=== PATIENT | male | born 2000 | race Caucasian/White ===

== ENCOUNTER 2024-05-03 03:19 | Emergency (ER) | payer SELFPAY ==
[2024-05-03 03:33] VITALS: BP 160/103
[2024-05-03 03:57] VITALS: BMI 40.0
[2024-05-03 04:00] VITALS: BP 141/84
[2024-05-03] MEDS: TORADOL 15 MG IV (04:46)
--- NOTE | 2024-05-03 04:51 | ED.GENMED ---
History of Present Illness
General
Chief Complaint: Extremity Pain (non-traumatic)
Source: patient
Time Seen by Provider: 05/03/24 04:35
History of Present Illness
History of Present Illness:
24-year-old male presents to the emergency room complaining of a sickle cell crisis. Patient has an extensive history of sickle cell disease with complications. He has had a right hip replacement, cholecystectomy, autosplenectomy. Mom states that
when he was younger he was at [facility] quite frequently. As he is gotten older is crises have become less frequent. Typically he has 1-2 crises a year and he usually is able to control pain with a heating pad and Motrin.
However he has pain in his right heel today which is a new place for him to have pain. He is having difficulty walking because of the pain. He has not had a fever. He has no chest pain or shortness of breath. No nausea or vomiting.
Past History
Past History
ED Past Medical History: Other (Sickle cell disease)
ED Past Surgical History: Cholecystectomy, Tonsilectomy and Other (Splenectomy)
Social History
Tobacco: Non-smoker
Alcohol: None
Drug: None
Living: with family
Phy Exam
Physical Exam
Physical Exam:
General: Awake, Alert, Oriented X3. Appears uncomfortable but in no acute distress
Vitals: unremarkable
Head: Atraumatic
Eyes: Pupils equal, EOMI
Throat: Airway intact, no exudates
Neck: Trachea midline
Lungs: Clear and equal b/l
Heart: Regular rate, no murmurs
Abd: Soft, Nontender, No pulsatile mass
Neuro: Nonfocal
Skin: Warm, dry, no rash
Extremities: pulses equal b/l, no edema. Pain to palpation over the right heel. Some pain over the left knee.
Course
Orders/Labs/Results
Orders:
Orders
05/03/24 04:39
Ketorolac [Toradol] 15 mg .ROUTE .STK-MED ONE
05/03/24 04:45
Complete Blood Count/With Diff Urgent
Comprehensive Metabolic Panel Urgent
Manual Differential Urgent
Reticulocyte Count Urgent
Ketorolac [Toradol] 15 mg IM NOW STA
05/03/24 04:46
Ketorolac [Toradol] 15 mg IV NOW STA
05/03/24 04:51
0.9% Sodium Chloride 1000 ml [Nss] 1,000 ml IV BOLUS
Lactated Ringers [Lr] 1,000 ml IV BOLUS
05/03/24 04:52
Heel, Right 2 View [CR Heel/os Calcis - Right 2 Vw] Urgent
Comment:
Reason For Exam: Heel pain
05/03/24 06:51
HYDROmorphone [Dilaudid] 1 mg IV NOW STA
Abnormal Lab Results
05/03/24
04:45
WBC 17.3 H 10^3/uL
(4.8-10.8)
RBC 4.42 L 10^6/uL
(4.70-6.10)
Hgb 9.7 L g/dL
(13.0-18.0)
Hct 31.0 L %
(39.0-52.0)
MCV 70.1 L fL
(80.0-94.0)
MCH 21.9 L pg
(27.0-31.0)
MCHC 31.3 L g/dL
(33.0-37.0)
RDW 23.9 H %
(11.5-14.5)
Plt Count 650 H 10^3/uL
(130-400)
Abs Neuts (Manual) 11.9 H 10^3/uL
(1.4-6.5)
Lymphocytes (Manual) 17 L %
(20-51)
Retic Count 15.8 H %
(0.4-2.8)
Glucose 106 H mg/dl
(70-99)
Total Bilirubin 3.3 H mg/dl
(0.2-1.3)
Total Protein 8.6 H g/dl
(6.3-8.2)
05/03/24 04:45
05/03/24 04:45
Vital Signs
Initial and Last Documented VS:
Initial Vital Signs
Temp Pulse Resp BP Pulse Ox
98.4 F 96 18 160/103 94
05/03/24 03:33 05/03/24 03:33 05/03/24 03:33 05/03/24 03:33 05/03/24 03:33
Last Documented Vital Signs
Temp Pulse Resp BP Pulse Ox
98.2 F 93 20 149/90 92
05/03/24 04:23 05/03/24 06:15 05/03/24 06:15 05/03/24 06:00 05/03/24 06:15
MDM/Problems Addressed
Differential Diagnosis Includes:
Vaso-occlusive crisis, aplastic crisis, fracture
MDM/Problems Addressed:
Patient presents with pain in his left knee and right heel. Right heel is a new place for him to have pain. Labs show that he is making a adequate amount of reticulocytes. He is not hypoxic. His hemoglobin is up approximately at his baseline.
Patient feeling better after analgesia here. He seems stable for discharge but I have explained that he should return if his pain is not well-controlled or he develops a fever.
*Radiology
Radiology exam reviewed: preliminary read by ED provider (No fracture or acute process is noted)
*Pulse Oximetry
Patient hypoxic: no
*Critical Care Note
Total Time (30-74mins, 75-104mins- exclusive of procedures): Not Applicable
Patient Management
Social determinants of health affecting care: Poor outpatient follow-up and Strong social support
ED Attending Note
-
Portions of this chart may have been created with voice recognition software.� Occasional wrong word or��sound alike� substitutions may have occurred due to the inherent limitations of voice recognition software.
Discharge Plan
Departure
Patient Disposition: Home (Routine Discharge)
Date of Disposition: 05/03/24
Time of Disposition: 08:14
Patient with high blood pressure during this ER visit?: No
Discharge Problem:
Sickle cell crisis
Instructions: Sickle Cell Disease Pain ED, BLOOD PRESSURE
Prescriptions:
New
oxycodone 5 mg tablet
5 mg PO Q6H PRN (Reason: Pain) Qty: 12 0RF
No Action
folic acid 1 MG tablet
1 mg PO DAILY
ibuprofen 400 MG tablet
600 mg PO Q6HPRN PRN (Reason: pain)
cholecalciferol (vitamin D3) 2,000 UNIT tablet
1,000 unit PO DAILY
hydroxyurea 500 MG capsule
1,500 mg PO DAILY
Droxia 200 MG capsule
200 mg PO DAILY
Penicillin V Potassium
250 mg PO BID
Referrals:
Ilia Godinez MD [Family Provider] -
Gil Vazquez MD [Active] -
Activity Restrictions/Additional Instructions:
Return to the emergency room should you develop a fever or if the pain is not controlled. I have provided you the contact information for the data abstractor here at [facility]. You should call to make an appointment so you have appropriate
follow-up for your disease.
Interventions
Interventions:
*Risk Screen - Suicide Last Done: 05/03/24 04:26
*General Assessment Last Done: 05/03/24 03:33
*Neglect/Abuse Screening Last Done: 05/03/24 03:33
ED- Fall Risk Assessment Last Done: 05/03/24 03:57
*ED COVID-19 Vaccine History Last Done: 05/03/24 03:57
ED-Skin Assessment Last Done: 05/03/24 03:57
ED-Peripheral Vascular Assessment Last Done: 05/03/24 03:57
ED-Musculoskeletal Assessment Last Done: 05/03/24 03:57
Discharge Date and Time
Print Language: KUWAITI
[2024-05-03] MEDS: LR 1000 IV (04:54)
[2024-05-03 05:29] LABS: Hemoglobin 9.7 g/dL (13.0-18.0); Mean Corp Hgb Conc. 31.3 g/dL (33.0-37.0); Mean Corpuscular Hgb 21.9 pg (27.0-31.0); Mean Corpuscular Volume 70.1 fL (80.0-94.0); Mean Platelet Volume 8.6 fL (7.4-10.4); Platelet Count 650 10^3/uL (130-400); Red Blood Cell Count 4.42 10^6/uL (4.70-6.10); Red Cell Dist. Width 23.9 % (11.5-14.5); White Blood Cell Count 17.3 10^3/uL (4.8-10.8)
[2024-05-03 05:30] LABS: ALT (SGPT) 22 U/L (0-50); AST (SGOT) 38 U/L (17-59); Albumin 4.8 g/dl (3.5-5.0); Alkaline Phosphatase 83 U/L (38-126); Blood Urea Nitrogen 10 mg/dl (9-20); Carbon Dioxide 22 mmol/L (22-30); Chloride 103 mmol/L (98-107); Estimated Creatinine Clearance > 125 ml/min; Glucose 106 mg/dl (70-99); Potassium 4.6 mmol/L (3.5-5.1); Sodium 138 mmol/L (135-145); Total Bilirubin 3.3 mg/dl (0.2-1.3); Total Protein 8.6 g/dl (6.3-8.2); eGFR > 60.00
[2024-05-03 05:37] VITALS: BP 147/82
[2024-05-03 06:00] VITALS: BP 149/90
[2024-05-03 06:00] LABS: Absolute Neutrophils -Man Diff 11.9 10^3/uL (1.4-6.5); Anisocytosis 2+; Atypical Lymphocytes 3 %; Band Neutrophils 1 % (0-3); Eosinophils 2 % (0-6); Lymphocytes 17 % (20-51); Metamyelocytes 1 % (-); Monocytes 7 % (2-9); Myelocytes 1 % (-); Normal RBC Morphology No; Nucleated Red Blood Cells 113 (-); Platelets Checked Yes; Segmented Neutrophils 68 % (42-75)
[2024-05-03 06:34] LABS: Hypochromasia 2+; Microcytosis 2+; Poikilocytosis 2+; Polychromasia 1+
[2024-05-03 06:35] LABS: Basophilic Stippling Occasional; Ovalocytes 1+; Schistocytes Occasional
[2024-05-03 06:36] LABS: Howell Jolly Bodies 1+; Tear Drop Red Blood Cells Occasional
[2024-05-03 06:37] LABS: Target Cells 3+; Total Cells Counted 100
[2024-05-03 06:38] LABS: Reticulocyte Count 15.8 % (0.4-2.8)
[2024-05-03 06:41] LABS: Sickled Red Blood Cells 1+
[2024-05-03] MEDS: DILAUDID 1 MG IV (06:54)
[2024-05-03 07:00] VITALS: BP 151/86
--- NOTE | 2024-05-03 07:00 | PTCARENOTE ---
Late Entry: Ordered LR completed infusing at 0700 05/03/2024.
[2024-05-03 08:00] VITALS: BP 144/87
== END 2024-05-03 08:30 | disposition home or self-care (01) ==
LOC: EMR 03:19
PROVIDERS: EMERGENCY PHYSICIAN Emergency Medicine
DX: D57.00 Hb-SS disease with crisis, unspecified (principal); M25.562 Pain in left knee; M79.671 Pain in right foot; R26.2 Difficulty in walking, not elsewhere classified; Z96.641 Presence of right artificial hip joint; Z90.49 Acquired absence of other specified parts of digestive tract; Z90.81 Acquired absence of spleen
CPT/HCPCS: 99284; 96374; 96375; 96361 ×2; 73650; 80053; 85025; 85045

== ENCOUNTER 2024-08-06 05:11 | Emergency (ER) | payer SELFPAY ==
[2024-08-06 05:15] VITALS: BP 190/80
--- NOTE | 2024-08-06 05:31 | ED.GENMED ---
History of Present Illness
<Carole Jordan DO - Last Filed: 08/06/24 07:09>
General
Chief Complaint: Generalized Pain
Source: patient, family (Mother at bedside) and previous hospital records (Previous ED visit for similar complaints most recently April of this year. Most recent hospitalization March 2018, required transfer to [facility] due
to ongoing pain)
Exam Limitations: none
Time Seen by Provider: 08/06/24 05:30
Nursing documentation reviewed up to this point in time: agreed with
History of Present Illness
History of Present Illness:
This is a 24-year-old male who presents to the ED with complaints of generalized pain related to sickle cell crisis. He has extensive history of sickle cell disease with complications. History of right hip replacement, cholecystectomy,
splenectomy. Multiple hospitalizations when he was younger at [facility] due to recurrent vaso-occlusive crisis but more recently as he has gotten older, crisis episodes have become less frequent. He is usually able to control
the pain with a heating pad and Motrin. He was prescribed a few tramadol last month and took a dose of tramadol tonight without relief.
He complains of 2-day history of primarily left shoulder, left hip, right knee pain. He has not had a fever nor chills. He denies cough nor fever nor shortness of breath, denies chest pain.
He denies nausea nor vomiting, no diarrhea nor constipation, appetite has been good.
Most recent ED visit here for similar complaint April 2024.
Past History
<Carole Jordan DO - Last Filed: 08/06/24 07:09>
Past History
ED Past Medical History: Other (Sickle cell disease)
ED Past Surgical History: Cholecystectomy, Tonsilectomy and Other (Splenectomy)
Social History
Tobacco: Non-smoker
Alcohol: None
Drug: None
Personal: Single
Living: with family
Employment: Employed
Family History
Family History: Other (Noncontributory)
Phy Exam
<Carole Jordan DO - Last Filed: 08/06/24 07:09>
Physical Exam
Physical Exam:
GENERAL: 24-year-old overweight male appears his stated age, awake and alert, oriented x 3. Appears uncomfortable related to pain. Afebrile, hypertensive, tachycardic.
EYE: anicteric
NECK: Supple, nontender, no meningismus, no significant adenopathy.
ENT: oral mucosa is moist. No rhinorrhea.
CARDIAC: Regular rhythm, mildly tachycardic. no murmur.
LUNGS: Clear breath sounds bilaterally, no acute respiratory distress, no wheezes/rales/rhonchi
ABDOMEN: Soft, nondistended, without focal tenderness, no r/g, no cvat. normoactive BS.
NEUROLOGICAL: Alert and oriented x3, no focal neuro deficits.
SKIN: Warm and dry, mildly pale in color, skin intact. No rash.
MUSCULOSKELETAL: No C/C/E. peripheral pulses are full and equal b/l. Moderate tenderness to the left shoulder, left hip, right knee. No joint effusion, no erythema.
PSYCH: Normal and appropriate interaction.
Course
<Carole Jordan DO - Last Filed: 08/06/24 07:09>
Orders/Labs/Results
Orders:
Orders
08/06/24 05:27
Lactated Ringers [Lr] 1,000 ml IV BOLUS
Morphine Sulfate 6 mg IV NOW STA
08/06/24 05:39
Complete Blood Count/With Diff Urgent
Comprehensive Metabolic Panel Urgent
Reticulocyte Count Urgent
Sed Rate [Erythrocyte Sed Rate] Urgent
08/06/24 05:54
Morphine Sulfate 4 mg .ROUTE .STK-MED ONE
08/06/24 06:10
Ketorolac [Toradol] 30 mg IV NOW STA
08/06/24 06:11
Ketorolac [Toradol] 30 mg .ROUTE .STK-MED ONE
08/06/24 06:55
Case Management Consult ONCE
Case Management Consult: Discharge Planning
Requested By:: PHYSICIAN
Comment: request assistance with medical insurance options. Pt w hx SSD. lost his insurance coverage
at age 23. has been out of medication x 2-3 months.
08/06/24 07:15
0.9% Sodium Chloride 1000 ml [Nss] 1,000 ml IV 250 mls/hr
Abnormal Lab Results
08/06/24
05:39
WBC 17.0 H 10^3/uL
(4.8-10.8)
Hgb 9.5 L g/dL
(13.0-18.0)
Hct 29.1 L %
(39.0-52.0)
MCV 60.9 L fL
(80.0-94.0)
MCH 19.9 L pg
(27.0-31.0)
MCHC 32.6 L g/dL
(33.0-37.0)
RDW 23.9 H %
(11.5-14.5)
Plt Count 600 H 10^3/uL
(130-400)
Chloride 108 H mmol/L
(98-107)
Glucose 149 H mg/dl
(70-99)
Total Bilirubin 2.6 H mg/dl
(0.2-1.3)
Total Protein 8.4 H g/dl
(6.3-8.2)
08/06/24 05:39
08/06/24 05:39
Vital Signs
Initial and Last Documented VS:
Initial Vital Signs
Temp Pulse Resp BP Pulse Ox
36.6 C 126 24 190/80 100
08/06/24 05:15 08/06/24 05:15 08/06/24 05:15 08/06/24 05:15 08/06/24 05:15
Last Documented Vital Signs
Temp Pulse Resp BP Pulse Ox
36.6 C 108 30 150/80 94
08/06/24 05:15 08/06/24 09:00 08/06/24 07:15 08/06/24 06:58 08/06/24 09:00
<William Humphrey MD - Last Filed: 08/06/24 09:53>
Orders/Labs/Results
Orders:
Orders
08/06/24 05:27
Lactated Ringers [Lr] 1,000 ml IV BOLUS
Morphine Sulfate 6 mg IV NOW STA
08/06/24 05:39
Complete Blood Count/With Diff Urgent
Comprehensive Metabolic Panel Urgent
Reticulocyte Count Urgent
Sed Rate [Erythrocyte Sed Rate] Urgent
08/06/24 05:54
Morphine Sulfate 4 mg .ROUTE .STK-MED ONE
08/06/24 06:10
Ketorolac [Toradol] 30 mg IV NOW STA
08/06/24 06:11
Ketorolac [Toradol] 30 mg .ROUTE .STK-MED ONE
08/06/24 06:55
Case Management Consult ONCE
Case Management Consult: Discharge Planning
Requested By:: PHYSICIAN
Comment: request assistance with medical insurance options. Pt w hx SSD. lost his insurance coverage
at age 23. has been out of medication x 2-3 months.
08/06/24 07:15
0.9% Sodium Chloride 1000 ml [Nss] 1,000 ml IV 250 mls/hr
Abnormal Lab Results
08/06/24
05:39
WBC 17.0 H 10^3/uL
(4.8-10.8)
Hgb 9.5 L g/dL
(13.0-18.0)
Hct 29.1 L %
(39.0-52.0)
MCV 60.9 L fL
(80.0-94.0)
MCH 19.9 L pg
(27.0-31.0)
MCHC 32.6 L g/dL
(33.0-37.0)
RDW 23.9 H %
(11.5-14.5)
Plt Count 600 H 10^3/uL
(130-400)
Chloride 108 H mmol/L
(98-107)
Glucose 149 H mg/dl
(70-99)
Total Bilirubin 2.6 H mg/dl
(0.2-1.3)
Total Protein 8.4 H g/dl
(6.3-8.2)
08/06/24 05:39
08/06/24 05:39
Vital Signs
Initial and Last Documented VS:
Initial Vital Signs
Temp Pulse Resp BP Pulse Ox
36.6 C 126 24 190/80 100
08/06/24 05:15 08/06/24 05:15 08/06/24 05:15 08/06/24 05:15 08/06/24 05:15
Last Documented Vital Signs
Temp Pulse Resp BP Pulse Ox
36.6 C 108 30 150/80 94
08/06/24 05:15 08/06/24 09:00 08/06/24 07:15 08/06/24 06:58 08/06/24 09:00
<Carole Jordan, DO - Last Filed: 08/06/24 07:09>
MDM/Problems Addressed
Differential Diagnosis Includes:
Patient presents with vaso-occlusive crisis.
Nothing in history nor exam to suggest acute infectious process, nothing to suggest acute chest syndrome.
Will initiate IV fluids, give IV morphine, will check labs including reticulocyte count, sed rate. Consider IV Toradol.
Chronic conditions affecting care: Other (Sickle cell disease)
Acute Exacerbation and/or Progression of Chronic Illness: Other ( Sickle cell disease)
<Carole Jordan DO - Last Filed: 08/06/24 07:09>
*Pulse Oximetry
Patient hypoxic: no
*Critical Care Note
Total Time (30-74mins, 75-104mins- exclusive of procedures): Not Applicable
<Carole Jordan DO - Last Filed: 08/06/24 07:09>
Update Note
Update Note:
06:45
After an IV dose of morphine and Toradol, IV fluids patient resting comfortably. Sinus tachycardia has resolved. Systolic hypertension improving.
Labs thus far reveal mild but stable anemia. Moderate but stable elevated white blood cell count. Normal sed rate of 3. Mildly elevated bilirubin, improved from previous. Reticulocyte count is pending.
Will continue IV fluids and continue to observe.
Patient states he currently has a lapse in healthcare coverage. He lost his insurance last year. Currently unemployed, continues to search for jobs.
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
He had been maintained on folic acid, hydroxyurea, Pen-Vee K
<William Humphrey MD - Last Filed: 08/06/24 09:53>
Update Note
Update Note:
06:45
After an IV dose of morphine and Toradol, IV fluids patient resting comfortably. Sinus tachycardia has resolved. Systolic hypertension improving.
Labs thus far reveal mild but stable anemia. Moderate but stable elevated white blood cell count. Normal sed rate of 3. Mildly elevated bilirubin, improved from previous. Reticulocyte count is pending.
Will continue IV fluids and continue to observe.
Patient states he currently has a lapse in healthcare coverage. He lost his insurance last year. Currently unemployed, continues to search for jobs.
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
He had been maintained on folic acid, hydroxyurea, Pen-Vee K
UPDATE (William Humphrey MD)
I have seen and evaluated the patient after signout and reviewed all labs and imaging.
Focused HPI: 24-year-old male with history of sickle cell disease presents for evaluation of generalized bone pain consistent with prior sickle cell crises. Denies chest pain or shortness of breath. Previously was on morphine and hydroxyurea,
folate, penicillin but his insurance has lapsed and has not been on his medication for quite some time (about a year). 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
Physical exam: Awake alert, resting comfortably no acute distress. Mild hypertension, tachycardia. Tachypnea noted in triage normalized by my assessment. No hypoxia. No fever. Lungs sound clear.
Medical Decision Makin-year-old male presents with generalized pain consistent with prior sickle cell crises. He is currently receiving fluids. He received morphine and Toradol. Symptoms greatly improved he says. Resting comfortably now.
No signs or symptoms of acute chest syndrome. His CBC shows stable anemia, chronic leukocytosis/thrombocytosis. His CMP shows no clinically significant abnormalities. His reticulocyte count is pending. Case management consultation pending to
hopefully help with lapse in insurance.
Patient's pain remains very well-controlled. people manager was able to work with patient to help take for steps towards obtaining insurance. In the meantime we will have patient follow-up short-term in [facility] clinic. Attempted to determine dosing
for prior prescription for hydroxyurea but after calling pharmacy and according with pharmacist we were unable to confirm his dosing and he is not sure of his dosing�will defer this to outpatient follow-up. Will prescribe short-term pain control.
Restart folate. Stable for discharge. Patient very comfortable with this plan.
ED Attending Note
<Carole Jordan, DO - Last Filed: 08/06/24 07:09>
-
Portions of this chart may have been created with voice recognition software.� Occasional wrong word or��sound alike� substitutions may have occurred due to the inherent limitations of voice recognition software.
Discharge Plan
Departure
Patient Disposition: Home (Routine Discharge)
Date of Disposition: 08/06/24
Time of Disposition: 09:48
Patient with high blood pressure during this ER visit?: Yes
Discharge Problem:
Sickle-cell thalassemia with crisis
Instructions: Sickle cell disease pain in adults - Discharge instructions
Prescriptions:
New
folic acid 1 mg tablet
1 mg PO DAILY Qty: 30 0RF
oxycodone 5 mg tablet
5 mg PO TID PRN (Reason: Pain) Qty: 14 0RF
No Action
ibuprofen 800 mg tablet
800 mg PO Q8HPRN PRN (Reason: mild pain)
tramadol 50 mg tablet
50 mg PO Q6HPRN PRN (Reason: moderate pain)
Referrals:
[facility] ([facility]--for short term follow up while pending insurance)
Maya Iniguez MD [Active] - Call in 1-3 days for appt
Activity Restrictions/Additional Instructions:
Thank you for visiting the Emergency Department at [facility].
1. Please schedule a follow up appointment as directed. Call first thing tomorrow morning to make an appointment.
2. If indicated, please take your medications as instructed and indicated on discharge paperwork.
3. If any of your symptoms do not improve, or persist, or become more severe within 6-12 hours, please return to the emergency department for further care.
4. Please return to the emergency department if you develop a headache, neck pain/stiffness, fever greater than 100.4F, chest pain, shortness of breath, persistent nausea, vomiting, slurred speech, difficulty walking, numbness/tingling, weakness,
signs of infection or any other symptoms that are worrisome to you.
Please call [phone] if you have any questions.
Interventions
Interventions:
*Risk Screen - Suicide Last Done: 08/06/24 05:15
*General Assessment Last Done: 08/06/24 06:03
*Neglect/Abuse Screening Last Done: 08/06/24 05:15
*ED- Fall Risk Assessment Last Done: 08/06/24 06:03
*ED COVID-19 Vaccine History Last Done: 08/06/24 06:03
Discharge Date and Time
Print Language: SWEDISH
[2024-08-06] MEDS: MORPHINE SULFATE 6 MG IV ×2 (05:47→09:58)
[2024-08-06] MEDS: LR 1000 IV (05:49)
[2024-08-06 05:52] VITALS: BMI 42.1
[2024-08-06 06:02] VITALS: BP 160/88
[2024-08-06 06:07] LABS: Hematocrit 29.1 % (39.0-52.0); Hemoglobin 9.5 g/dL (13.0-18.0); Mean Corp Hgb Conc. 32.6 g/dL (33.0-37.0); Mean Corpuscular Hgb 19.9 pg (27.0-31.0); Mean Corpuscular Volume 60.9 fL (80.0-94.0); Mean Platelet Volume 8.9 fL (7.4-10.4); Platelet Count 600 10^3/uL (130-400); Red Blood Cell Count 4.78 10^6/uL (4.70-6.10); Red Cell Dist. Width 23.9 % (11.5-14.5)
[2024-08-06 06:08] LABS: ALT (SGPT) 19 U/L (0-50); AST (SGOT) 29 U/L (17-59); Albumin 4.7 g/dl (3.5-5.0); Alkaline Phosphatase 106 U/L (38-126); Blood Urea Nitrogen 10 mg/dl (9-20); Calcium 9.9 mg/dl (8.4-10.2); Carbon Dioxide 24 mmol/L (22-30); Chloride 108 mmol/L (98-107); Estimated Creatinine Clearance > 125 ml/min; Glucose 149 mg/dl (70-99); Potassium 4.4 mmol/L (3.5-5.1); Sodium 141 mmol/L (135-145); Total Bilirubin 2.6 mg/dl (0.2-1.3); Total Protein 8.4 g/dl (6.3-8.2); eGFR > 60.00
[2024-08-06] MEDS: TORADOL 30 MG IV (06:12)
[2024-08-06 06:17] LABS: Erythrocyte Sed Rate 3 mm/hour (0-20)
[2024-08-06 06:58] VITALS: BP 150/80
[2024-08-06] MEDS: NSS 1000 IV (07:01)
--- NOTE | 2024-08-06 10:03 | CM ---
ED CM consult as pt uninsured
Bedside meeting with pt and mother
Pt has been collecting unemployment benefits and they have termed
Without income stream and insurance now
Not eligible for coverage through mother's insurance plan
[place] plans unaffordable
Provided [facility] info along with [facility] info
Call to local [facility] and [address] for dc meds are $35
Affordable to pt and mother
Both CM and mother encouraged pt to follow up on enrolling with clinic and MA application
VM left for [facility]/Paige
[2024-08-06 10:08] VITALS: BP 152/103
[2024-08-06 11:50] LABS: Absolute Neutrophils -Man Diff 14.7 10^3/uL (1.4-6.5); Anisocytosis 2+; Band Neutrophils 0 % (0-3); Lymphocytes 8 % (20-51); Microcytosis 2+; Monocytes 3 % (2-9); Myelocytes 2 % (-); Normal RBC Morphology No; Nucleated Red Blood Cells 8 (-); Platelets Checked Yes; Segmented Neutrophils 87 % (42-75)
[2024-08-06 11:51] LABS: Hypochromasia 1+; Ovalocytes 1+; Poikilocytosis 1+; Schistocytes 1+; Sickled Red Blood Cells 1+; Spherocytes 1+; Target Cells 2+; Tear Drop Red Blood Cells 1+
[2024-08-06 11:52] LABS: Total Cells Counted 100
[2024-08-06 13:14] LABS: Reticulocyte Count 14.3 % (0.4-2.8)
== END 2024-08-06 10:26 | disposition home or self-care (01) ==
LOC: EMR 05:11
PROVIDERS: EMERGENCY PHYSICIAN Emergency Medicine
DX: D57.419 Sickle-cell thalassemia, unspecified, with crisis (principal); Z90.49 Acquired absence of other specified parts of digestive tract; Z90.81 Acquired absence of spleen; R00.0 Tachycardia, unspecified; Z96.641 Presence of right artificial hip joint; Z56.0 Unemployment, unspecified; Z59.71 Insufficient health insurance coverage
CPT/HCPCS: 96374; 96375; 96376; 96361; 99284; 80053; 85025; 85045; 85652

== ENCOUNTER 2024-08-06 16:20 | Inpatient (IN) | payer MEDICAID, SELFPAY ==
[2024-08-06] VITALS (9 sets, daily range): BP systolic 131–165; BP diastolic 83–117; BMI 40.1; BMI 40.9
[2024-08-06] MEDS: TORADOL 30 MG IV (12:10)
[2024-08-06] MEDS: NSS 1000 IV ×3 (12:10→18:35)
--- NOTE | 2024-08-06 12:11 | ED.GENMED ---
History of Present Illness
General
Chief Complaint: Breathing Problem
Source: patient
Exam Limitations: none
Time Seen by Provider: 08/06/24 11:51
Nursing documentation reviewed up to this point in time: agreed with
History of Present Illness
History of Present Illness:
The patient is a 24-year-old man with a past medical history of sickle cell disease who was evaluated earlier in the ED for sickle cell pain. Patient reports that he had been given multiple medication in the ED which made him feel very nauseous.
After getting back from the emergency department, patient told his mom that he felt like he could not breathe. His mother gave him nasal Narcan, attributing his shortness of breath to him being given too much medication in the ED. Patient reports
that he has had ongoing chest pain and severe shortness of breath since then. Patient arrives extremely anxious, hyperventilating and diaphoretic. Patient reports he has never had any chest issues before with his sickle cell disease and he feels
extremely scared and nervous. He denies recent fever. Patient reports that he generally takes NSAIDs for sickle cell pain and does not take opioids on any kind of regular basis. Patient reports that due to losing his insurance, he has not had any
of his sickle cell medication in at least 4 months. Patient adamantly refuses alcohol use. He also adamantly refuses daily opioid use or any regularity of using pain medication
Past History
Past History
ED Past Medical History: Other (Sickle cell disease)
ED Past Surgical History: Cholecystectomy, Tonsilectomy and Other (Splenectomy)
Social History
Tobacco: Former smoker (Patient used to vape for 4 years but quit)
Alcohol: None
Drug: None
Personal: Single
Living: with family
Employment: Employed
Family History
Family History: Other (Noncontributory)
Review of Systems
Review of Systems
Allergies reviewed?: Yes
All Other Systems: ROS reviewed and negative except as documented in HPI and ROS
Constitutional: Reports fatigue
EENT: Reports no symptoms
Respiratory: Reports trouble breathing
Cardiac: Reports chest pain and palpitations
ABD/GI: Reports no symptoms
: Reports no symptoms
Musculoskeletal: Reports back pain and other (Bilateral leg and arm pain)
Skin: Reports no symptoms
Neurological: Reports no symptoms
Endocrine: Reports no symptoms
Hematologic/Lymphatic: Reports no symptoms
Psychiatric: Reports anxiety
Phy Exam
Physical Exam
Physical Exam:
Physical Exam
General: Patient arrives extremely anxious, screaming out, restless, diaphoretic
Neck: supple. no meningeal signs. normal psoterior pharynx
Heart: Tachycardic
Lungs: no acute respiratory distress. clear bilaterally
Abdomen: normal bowel sounds. not tender. no CVAT
Neuro: alert and oriented. no focal neurological deficits
Skin: no rash
Psychiatric: well kept. interactive and cooperative
Extremities: no edema. no calf tenderness. negative homans. good distal pulses
Course
Orders/Labs/Results
Orders:
Orders
08/06/24 11:56
Electrocardiogram (*1) Urgent
Reason for Study: Chest Pain
EKG- Treatment ONCE
08/06/24 12:06
Ketorolac [Toradol] 30 mg .ROUTE .STK-MED ONE
08/06/24 12:08
0.9% Sodium Chloride 1000 ml [Nss] 1,000 ml IV BOLUS
Ketorolac [Toradol] 30 mg IV NOW STA
08/06/24 12:10
CR Chest Portable - 1 View Urgent
Comment:
Reason For Exam: SOB, sickle cell crisis
Reason Study Needs to be Portable: Unable to Transport
08/06/24 12:12
Complete Blood Count/No Diff Urgent
Comprehensive Metabolic Panel Urgent
Troponin I Urgent
08/06/24 12:34
Lorazepam [Ativan] 1 mg IV NOW STA
Lorazepam [Ativan] 2 mg .ROUTE .STK-MED ONE
08/06/24 12:52
0.9% Sodium Chloride 1000 ml [Nss] 1,000 ml IV BOLUS
08/06/24 13:19
CT Chest PE Study Urgent
Comment:
Reason For Exam: tachy, SOB
08/06/24 13:30
HYDROmorphone [Dilaudid] 1 mg .ROUTE .STK-MED ONE
08/06/24 13:36
HYDROmorphone [Dilaudid] 1 mg IV NOW STA
08/06/24 15:03
CefTRIAXone [Rocephin] 1,000 mg IV NOW STA
08/06/24 15:05
Azithromycin 500 mg/250 ml [Zithromax Infusion] 500 mg in 250 ml IV NOW
Abnormal Lab Results
08/06/24
12:12
WBC 25.2 H 10^3/uL
(4.8-10.8)
RBC 4.69 L 10^6/uL
(4.70-6.10)
Hgb 9.3 L g/dL
(13.0-18.0)
Hct 28.9 L %
(39.0-52.0)
MCV 61.6 L fL
(80.0-94.0)
MCH 19.8 L pg
(27.0-31.0)
MCHC 32.2 L g/dL
(33.0-37.0)
RDW 24.1 H %
(11.5-14.5)
Plt Count 507 H 10^3/uL
(130-400)
Chloride 108 H mmol/L
(98-107)
Carbon Dioxide 19 L mmol/L
(22-30)
BUN 8 L mg/dl
(9-20)
Glucose 279 H mg/dl
(70-99)
Total Bilirubin 2.6 H mg/dl
(0.2-1.3)
Alkaline Phosphatase 169 H U/L
(38-126)
Total Protein 8.8 H g/dl
(6.3-8.2)
08/06/24 12:12
08/06/24 12:12
Vital Signs
Initial and Last Documented VS:
Initial Vital Signs
Pulse Ox
100
08/06/24 11:58
Last Documented Vital Signs
Temp Pulse Resp BP Pulse Ox
97.4 F 135 15 154/98 91
08/06/24 12:07 08/06/24 15:00 08/06/24 15:00 08/06/24 14:00 08/06/24 15:00
MDM/Problems Addressed
Differential Diagnosis Includes:
Acute chest crisis and sickle cell, pneumonia, PE, acute coronary syndrome, effects from Narcan, possible opioid withdrawal from Narcan
MDM/Problems Addressed:
Patient presents with acute shortness of breath and typical acute sickle cell pain in arms and legs
Chronic conditions affecting care:
Sickle cell disease
Acute Exacerbation and/or Progression of Chronic Illness:
Patient likely has acute exacerbation of sickle cell pain
*Radiology
Radiology exam reviewed: preliminary read by ED provider (Cardiomegaly with increased lung markings) and radiology read reviewed
*Pulse Oximetry
Patient hypoxic: no
*EKG
Interpreted by ED Provider?: Yes
Interpretation: abnormal
Comparison EKG: no comparison EKG present
Rate: tachycardiac
Rhythm: sinus
[place]: normal axis
Interval: normal interval
QRS Pattern: normal QRS
Ischemia: non-specific ST changes
*Radiology Services Manager Interpretation
Rate: tachycardiac
Interpretation: abnormal
Rhythm: sinus
*Critical Care Note
Total Time (30-74mins, 75-104mins- exclusive of procedures): Not Applicable
Data Reviewed
Review of Other/Old Records Reveals: Labs (Hemoglobin earlier today was 9.5)
Source: patient and ambulance crew
Update Note
Update Note:
Patient is still very tachycardic, anxious and tachypneic. We attempted to do the CAT scan of patient's chest but he moved due to pain in his sacral area and legs and the CAT scan was not successfully done.
Symptoms can be due to possible pneumonia, acute chest syndrome, or possible effects from Narcan. Patient adamantly says that he does not have opioid dependency and rarely uses it, however, mom reports that he was recently prescribed narcotics
ED Attending Note
-
Portions of this chart may have been created with voice recognition software.� Occasional wrong word or��sound alike� substitutions may have occurred due to the inherent limitations of voice recognition software.
Discharge Plan
Departure
Patient Disposition: Admit
Date of Disposition: 08/06/24
Time of Disposition: 14:54
Admit to: Telemetry
Presentation/result/management discussed w/ accepting MD/DO: Hospitalist
Patient with high blood pressure during this ER visit?: No
Condition: Fair
Covid-19: Not Applicable
Discharge Problem:
Acute tachycardia, Acute dyspnea, Sickle cell crisis
Prescriptions:
No Action
ibuprofen 800 mg tablet
800 mg PO Q8HPRN PRN (Reason: mild pain)
tramadol 50 mg tablet
50 mg PO Q6HPRN PRN (Reason: moderate pain)
folic acid 1 mg tablet
1 mg PO DAILY Qty: 30 0RF
oxycodone 5 mg tablet
5 mg PO TID PRN (Reason: Pain) Qty: 14 0RF
Referrals:
NONE,* [Family Provider] -
Interventions
Interventions:
*Risk Screen - Suicide Last Done: 08/06/24 12:15
*General Assessment Last Done: 08/06/24 12:15
*Neglect/Abuse Screening Last Done: 08/06/24 12:15
*ED- Fall Risk Assessment Last Done: 08/06/24 12:15
*ED COVID-19 Vaccine History Last Done: 08/06/24 11:57
ED- Cardiac Assessment Last Done: 08/06/24 11:58
ED- Pulmonary Assessment Last Done: 08/06/24 11:58
Discharge Date and Time
Print Language: MARTINIQUAIS
[2024-08-06 12:31] LABS: ALT (SGPT) 24 U/L (0-50); AST (SGOT) 43 U/L (17-59); Alkaline Phosphatase 169 U/L (38-126); Blood Urea Nitrogen 8 mg/dl (9-20); Calcium 9.9 mg/dl (8.4-10.2); Carbon Dioxide 19 mmol/L (22-30); Chloride 108 mmol/L (98-107); Estimated Creatinine Clearance > 125 ml/min; Glucose 279 mg/dl (70-99); Potassium 4.4 mmol/L (3.5-5.1); Sodium 142 mmol/L (135-145); Total Bilirubin 2.6 mg/dl (0.2-1.3); Total Protein 8.8 g/dl (6.3-8.2); eGFR > 60.00
[2024-08-06 12:37] LABS: Hematocrit 28.9 % (39.0-52.0); Hemoglobin 9.3 g/dL (13.0-18.0); Mean Corp Hgb Conc. 32.2 g/dL (33.0-37.0); Mean Corpuscular Hgb 19.8 pg (27.0-31.0); Mean Corpuscular Volume 61.6 fL (80.0-94.0); Mean Platelet Volume 9.1 fL (7.4-10.4); Platelet Count 507 10^3/uL (130-400); Red Blood Cell Count 4.69 10^6/uL (4.70-6.10); Red Cell Dist. Width 24.1 % (11.5-14.5); White Blood Cell Count 25.2 10^3/uL (4.8-10.8)
[2024-08-06] MEDS: ATIVAN 1 MG IV (12:37)
[2024-08-06 12:43] LABS: Troponin I 0.014 ng/ml
[2024-08-06] MEDS: DILAUDID 1 MG IV (13:38)
[2024-08-06] MEDS: ROCEPHIN 1000 MG IV (15:16)
[2024-08-06] MEDS: ZITHROMAX INFUSION 250 IV (15:24)
--- NOTE | 2024-08-06 15:24 | HPS.HSE ---
Family Physician
-
Family Physician: * NONE
Chief Complaint
-
Hyperventilation, shortness of breath, tachycardia post nasal Narcan
History of Present Illness
24-year-old male who was seen this a.m. at 530 complaining of generalized pain to his left hip, right knee, left arm and lower back secondary to history of sickle cell anemia. The patient felt he was in a sickle cell crisis. He reports multiple
hospitalizations when he was younger at [facility] due to vaso-occlusive crisis as he has gotten older episodes have become less frequent he has required splenectomy, cholecystectomy, right hip replacement. He reports being able to
control the pain usually with a heating pad and Motrin and tramadol however neither of those medications were giving him relief over the past 2 days. His mother states he did not get a prescription for tramadol until 1 month ago. He was given
morphine 6 mg followed by additional 4 mg this morning around 5:36 AM. He went home around 930 into his bed was feeling better he then started to develop lower back pain with a heating pad on. His mother states she went to the car to go pepper picker
his prescription for oxycodone 5 mg 3 times daily he called her on the phone and was panicking stating he could not breathe if she asked if he wanted her to call 911 or just come right home he said to come home since she was so close. When she
arrived home he was standing at the end of his bed frozen she states. He reports prior to that he was walking to the bathroom and walking back and had severe pain in his lower back he was in excruciating pain. His mother asked him if she could
give him Narcan which he stated yes. Neither here she was aware of what the Narcan would do. His mother was scared that she felt he was not breathing. After administering nasal Narcan at 11 AM he felt instant palpitations, shortness of breath,
nausea and began hyperventilating. She brought him to the emergency room. Now during my exam at 1600 he was still tacky in the 140s complaining of lower back pain although his left hip right knee and left arm were still starting to ache but he
felt much better than when he did initially after the Narcan. His mother is concerned that he is depressed over the past 6 months and not interested in doing anything since the of his uncle and the loss of his job.
He denies current fever, chills, sore throat, headache, chest pain, palpitations, cough, abdominal pain, vomiting, diarrhea.
He has past medical history sickle cell thalassemia, history of sickle cell crisis, history of chest pain syndrome, splenectomy, cholecystectomy, right hip replacement, history of chest pain syndrome many years ago, prior nicotine vape use no
history of intubation
Medical History
Past Medical History
Past Medical History: Reports Other
Additional Past Medical History:
y sickle cell thalassemia, history of sickle cell crisis, history of chest pain syndrome, history of chest pain syndrome many years ago, prior nicotine vape use no history of intubation
Past Surgical History: Reports Other
Additional Past Surgical History:
splenectomy, cholecystectomy, right hip replacement,
Social History
Tobacco: Vaping (Stopped vaping 3 years ago)
Alcohol: None
Drug: None
Personal: Single
Living: With Family (Lives with mother)
Employment: Not Employed (Unemployed for the past 6 months per mother)
Family History
Family History: Unable to Obtain
Allergies / Home Medications
Allergies reflects when Allergies were last updated in [employer].
Home Medications with original date entered in [employer]
Allergy/Medication List:
Allergies
Allergy/AdvReac Type Severity Reaction Status Date / Time
No Known Allergies Allergy Verified 08/06/24 05:19
Home Medications
folic acid 1 mg tablet 1 mg PO DAILY #30 tabs 08/06/24
ibuprofen 800 mg tablet 800 mg PO Q8HPRN PRN mild pain 08/06/24
oxycodone 5 mg tablet 5 mg PO TID PRN Pain #14 tabs 08/06/24
tramadol 50 mg tablet 50 mg PO Q6HPRN PRN moderate pain 08/06/24
Review of Systems
-
History Source: Patient and Family (Mother at bedside)
Constitutional: Denies Fever or Chills
EENT: Reports Other; Denies Sore Throat or Runny Nose
Respiratory: Reports Trouble Breathing (Prior hyperventilating post nasal Narcan); Denies Cough or Hemoptysis
Cardiac: Reports Other (Tachycardia heart rate 140); Denies Chest Pain, Palpitations or Syncope
Abdomen/GI: Reports Vomiting (Patient vomited once at home due to severe back pain); Denies Abdominal Pain, Nausea, Diarrhea or Constipated
: Denies Dysuria, Frequency, Flank Pain, Incontinence, Difficulty Voiding or Urgency
Musculoskeletal: Reports Joint Pain (Chronic left hip, right knee, left arm); Denies Edema
Skin: Denies Itching or Rash
Neurological: Denies Dizzy, Headache or Weakness
Endocrine: Reports No Symptoms
Hematologic/Lymphatic: Reports No Symptoms
Psych: Reports Anxiety (Due to pain)
Physical Exam
Vital Signs
Vital Signs
Temp Pulse Resp BP Pulse Ox
97.4 F 135 15 154/98 91
08/06/24 12:07 08/06/24 15:00 08/06/24 15:00 08/06/24 14:00 08/06/24 15:00
Physical Exam
General: Conversant, Pain and Obese; No Fever or Chills
HEENT: NormoCephalic, Anicteric, PERRLA and [place] Conjunctivae
Respiratory: Clear; No Wheezes, Rales or Rhonchi
Cardiac: S1/S2 and Tachycardia (Sinus 140 bpm secondary to pain); No Murmur, Rub, Gallop or Peripheral Edema
Breast: Deferred by me
GI: Soft, Non Tender, Non Distended, Normal Bowel Sounds and No Hepatosplenomegaly
Rectal: Deferred by Provider
Genito-urinary: Deferred by me
Musculoskeletal: No Clubbing, No Cyanosis, No Edema and Other (Pain in left hip, right knee, left arm no obvious joint swelling history of sickle cell)
Skin: Warm and Dry; No Rash or Jaundice
Neuro: AO x 3, No Motor Deficits and Other (Patient is shaking due to pain); No Slurred Speech, Facial Droop, Tremors or Sedated
Psych: Anxious (Due to lower back pain, left hip, right knee, left arm pain)
Laboratory Results
-
08/06/24 12:12
08/06/24 12:12
Laboratory Results
Total Bilirubin 2.6 mg/dl (0.2-1.3) H 08/06/24 12:12
AST 43 U/L (17-59) 08/06/24 12:12
ALT 24 U/L (0-50) 08/06/24 12:12
Alkaline Phosphatase 169 U/L (38-126) H 08/06/24 12:12
Troponin I 0.014 ng/ml 08/06/24 12:12
Data Reviewed
-
Diagnostic Radiology: Report Reviewed by me
Lab Data: Labs Reviewed by me
Impression/Plan
-
Impression/plan:
Inpatient IMU
#Acute pain crisis secondary to sickle cell disease
#Hx sickle cell anemia
WBC 25.2 at noon today> 17 at 5:39 this a.m.
Leukocytosis dating back to 2007 with level as high as 38.4
-Was treated at 5:30 AM with 2 doses of morphine 6 mg then additional 4 mg and Toradol
-IV Dilaudid 2 mg every 3 hours scheduled hold for sedation
-IV Dilaudid 1 mg every hour as needed breakthrough pain
-IV NSS 150 cc/h was given 2 L NSS in ER
-Consult Heme
#Hypercapnia secondary to hyperventilation
#Prior history acute chest syndrome
Serum carbon dioxide 19
CXR showing possible pulmonary congestion no definitive infiltrate
-Patient was given single dose Zithromax and Rocephin in ER
-Repeat chest x-ray in a.m.
#Sinus tachycardia reactive
HR 139 bpm
-Consult cardiology
-Trend troponins, initial troponin 0.014
EKG:Sinus tach 142 bpm
#Hypertension likely secondary to sickle cell pain
154/98 was elevated 130-190 sys over bliss 100;s since 5am
-Will continue to monitor as pain decreases to see if patient will need hypertensive medication
Sickle cell Hx
Microcytic anemia
Hgb 9.3, MCV 61.6 baseline is (9-10's)
-Continue folic acid
#Depression per mother
-Loss of cousin and job 6 months ago
-Patient denies suicidal ideation
#Hyperglycemia
BS 279 at noon, however at 5:39 AM blood sugar was 149, will check HgbA1c
-
#History of splenectomy
#Former vape nicotine use quit 3 years ago
#Class II obesity BMI 40
Affects all aspects of care
-When able to eat would recommend low-fat low-carb diet
DVT prophylaxis
SCDs
Full code
--- NOTE | 2024-08-06 16:04 | W.PN.UPDATE ---
Update Note
Progress Note Update
I saw and examined the patient.
The SUPERVISORY CIVIL ENGINEER or PA's note was reviewed and I agree with the note.
Comment:
24 years old male who was evaluated earlier today in the ER for pain crisis related to sickle cell disease. Patient was given IV morphine and IV Toradol with IV fluid. His pain improved and became better controlled and he was discharged home with
outpatient follow-up with hematology. He was given prescription of oxycodone.
Patient went back home and continue to have pain. He started to have worsening pain in his lower back, right hip and right knee with shortness of breath and chest pain. His mother thought that his shortness of breath was related to narcotic
overdose and administered nasal Narcan which led to worsening pain, and anxiety/diaphoresis with hyperventilation
Physical examination- -
General: Uncomfortable, in extreme pain.
HEENT: No deformities, Neck Supple. Pale and dry mucous membrane
lungs/Chest: Some rales (tachypneic)
Heart regular Rhythm, Normal S1/S2, Regular Rate (tachycardic)
Abdomen: Soft, Non Tender, Non Distended,.
Extremities: No cyanosis
Neurological: awake , Oriented x3. Answers questions appropriately and follows commands
Skin: No ecchymosis
Psych: Anxious and in pain
Assessment and plan
# Sickle cell pain crisis
Admit the patient to the hospital/IMU, his pain is mostly right hip, right knee and lower back
Patient will require higher level of care to monitor vital signs, sedation status while on high doses of opioid
Start the patient on intravenous Dilaudid standing dose and [id number]
Start the patient on continuous hydration, geneous hydration .
Continuous oxygen monitoring in IMU
Will follow closely
# Sickle cell disease with history of complications
On admission, WBC 25.2, hemoglobin 9.3, platelet count 507
Patient uses Motrin and heating pad. Had to tramadol prescription in the past.
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 Unable to confirm the dose of hydroxyurea.
Check reticulocyte count
Consult hematology for further management and follow-up
# History of leukocytosis, currently positive leukocytosis
No fever. Will do blood culture
# Shortness of breath, chest pain.
EKG consistent with sinus tachycardia
CT chest to rule out PE/pneumonia.
Checks x-ray with mild pulmonary congestion. Will repeat chest x-ray in a.m.
Continue oxygen supplementation
Initial troponin is 0.014
Trend troponin
Monitor on telemetry
Consult cardiology
Total critical time spent to see the patient, examine the patient, review data and lab results, discuss treatment plan with patient, nursing staff, ER doctor around 79 minutes. �
[2024-08-06] MEDS: DILAUDID 2 MG IV ×3 (16:05→22:04)
--- NOTE | 2024-08-06 16:49 | CON.CAR ---
Addendum entered and electronically signed by Aime Ahumada MD 08/06/24 17:46:
I saw and examined the patient.
The SOUND SYSTEM INSTALLER's note was reviewed and I agree with the note.
Comment: 24 year old male with sickle cell disease & INDIO on CPAP here for sob, back, pelvic and leg pain. We are asked to comment as he complained of some cp when he had cp. He was here this am for pain earlier and was discharge with pain
medicaitons. He then called his mother in more pain and sob, she was concerned as he typically doesn't use narcotics for crises and gave him narcan resulting in worsening pain and sob. He has now recieved IVF and IV narcotic pain relief. He is
asleep with a saturation of 86% on room air and snoring. I woke him and it boris directly to 95%. He does use CPAP at home. He no longer has cp or sob. He still has a bit of pain in his tailbone and lets. On exam he is tachycardic and
hypertensive. His lungs are cta. He is confused at times, and reports feeling 'loopy' but easily redirects and is calm, pleasant and oriented. ECG sinus tachycardia. I don't suspect an underlying cardiac issue. CT images limited by motion but lung
parenchyma without infiltrate. I suspect he symptoms due to SCD. Treat supportively as per medicine and heme. Sinus tachycardia seem likely due to acute clinical condition. Will check echo for completeness. Recommend CPAP for sleep, d/w medicine.
Continue IV hydration.
Original Note:
Consultation
Consultation Request
Date/Time Consultation Requested: 08/06/2024 16:00
Date/Time Consultation Performed: 08/06/2024 16:35
Requesting Provider: JE Brown
Performing Provider: JE Newsome for Dr. Ahumada
Reason for Consultation: Chest pain
Medical History
-
Chief Complaint: Shortness of breath
History of Present Illness:
Roberto Burkett is a 24 year old male with sickle cell disease & INDIO on CPAP who presented with a chief complaint of shortness of breath. He presented to the emergency department earlier today for pain. He was given intravenous Toradol and
morphine along with IV fluid. His pain was uncontrolled and he was discharged home. He was given a prescription for oxycodone. He had pain specifically in his low back and right hip. He endorsed associated shortness of breath and chest pain.
His mother was concerned about shortness of breath related to narcotic overdose and administered intranasal Narcan which then led to worsening pain and tachypnea which led to hyperventilation.
He reports infrequent sickle cell exacerbations. He was seen at [facility] until the age of 23. He has not seen a traffic rate clerk due to lack of insurance.
Past Medical History
Past Medical History: Other (Sickle cell, INDIO on CPAP)
Social History
Tobacco: Former Smoker
Drug: None
Personal: Single
Living: With Family
Employment: Not Employed ([employer], currently laid off)
Family History
Family History: Reviewed & Not Pertinent (Denies early CAD and SCD)
Allergies / Home Medications
Allergy/AdvReac Type Severity Reaction Status Date / Time
No Known Allergies Allergy Verified 08/06/24 05:19
�Medication �Instructions �Recorded �Confirmed �Type
folic acid 1 mg tablet 1 mg PO DAILY #30 tabs 08/06/24 08/06/24 Rx
ibuprofen 800 mg tablet 800 mg PO Q8HPRN PRN mild pain 08/06/24 08/06/24 History
oxycodone 5 mg tablet 5 mg PO TID PRN Pain #14 tabs 08/06/24 08/06/24 Rx
tramadol 50 mg tablet 50 mg PO Q6HPRN PRN moderate pain 08/06/24 08/06/24 History
Review of Systems
-
History Source: Patient
All other systems: Negative unless noted
Constitutional: Other (Pain)
EENT: No Symptoms
Respiratory: Trouble Breathing
Cardiac: Chest Pain
Abdomen/GI: No Symptoms
: No Symptoms
Musculoskeletal: Joint Pain
Skin: No Symptoms
Neurological: No Symptoms
Endocrine: No Symptoms
Hematologic/Lymphatic: No Symptoms
Physical Exam
Vital Signs
Temp Pulse Resp BP Pulse Ox
97.4 F 139 20 154/98 94
08/06/24 12:07 08/06/24 15:15 08/06/24 15:15 08/06/24 14:00 08/06/24 15:15
Lab Results
08/06/24 12:12
08/06/24 12:12
Troponin I 0.014 ng/ml 08/06/24 12:12
Physical Exam
General: Well Developed, Well Nourished, No Apparent Distress and Comfortable
HEENT: Normocephalic, Anicteric and Moist Mucous Membranes
Respiratory: Clear and Non Labored Respirations
Cardiac: S1/S2 and Regular Rhythm (Tachycardia)
Breast: Deferred by me
GI: Soft, Non Tender, Non Distended and Normal Bowel Sounds
Rectal: Deferred by Provider
Genito-urinary: No Costovertebral Tender
Musculoskeletal: No Clubbing, No Cyanosis and No Edema
Skin: Warm and Dry
Neuro: AO x 3 (Drowsy)
Hematologic/Lymphatic: No Lymphadenopathy
Psych: Calm
Impression / Plan
-
I/P: 24M with sickle cell disease & INDIO on CPAP who presents with sickle cell crisis C/O SOB, CP, and joint pain
Shortness of breath
-Leukocytosis appears chronic
-Rule out COVID-19 and influenza
-CT pending for PE
Chest pain
-Midsternal anterior chest pressure when he was short of breath, resolved
-Chest pain gets worse with a deep breath and when the pain returns
-Does not appear to be acute coronary syndrome
-Troponin 0.014, EKG without acute ischemia
Sickle cell crisis
-Fluids and pain mgmt per primary
-Heme/Onc consulted by primary service
Tachycardia, sinus, appropriate physiologic response to acute pain
Pain, in the setting of sickle cell crisis
INDIO, on CPAP
Obesity, BMI 40.1, he would benefit from weight loss
Data Reviewed
-
EKG: Report Reviewed by me (Sinus tachycardia, rate 142)
Labs: Labs Reviewed by me
Old Records: Reviewed
[2024-08-06 18:19] LABS: COVID-19 Antigen Negative (Negative)
[2024-08-06 18:43] LABS: Troponin I 0.055 ng/ml
--- NOTE | 2024-08-06 18:56 | PTCARENOTE ---
Received patient on admission from ED via stretcher; patient pulled over onto bed x4 assist d/t groggy from IV pain med prior to arrival. HR 130s-140s with transfer. Initiated IVF: NSS @ 150ml/hr. Dilaudid obtained from [employer], however patient stated
he was not in much pain, just back ache; med put back in pyxis. Mom and grandmom at bedside; mom assisted with answering admission questions. Patient slightly diaphoretic on arrival; afebrile at 98.5. CHG bath completed.
[2024-08-06] MEDS: ZOFRAN 4 MG IV (20:03)
--- NOTE | 2024-08-06 23:13 | W.PN.UPDATE ---
Update Note
Progress Note Update
~23:00 Pt HR has been trending up. Now sustained HR 140's - 150's, EKG showed sinus tachycardia. BP 142/87, Resp 12, 92% on 4L NC. Patient sleepy from pain medication, easily arousable to verbal stimuli and answers questions appropriately. Patient
states pain is controlled, rates at 4 out of 10.
Ordered Metoprolol 5 mg IV x 1. Repeat BP 149/92, HR 126 after medication given.
[2024-08-06] MEDS: LOPRESSOR 5 MG IV (23:17)
--- NOTE | 2024-08-06 23:22 | PTCARENOTE ---
assumed care of patient. pt is AAOx3 but drowsy and forgetful from IV pain medication. easily arousable. mom and grandma at bedside. medicated with IV dilaudid per JUL. pt rates pain anywhere from 5-9/10. pain can be to lower back, or legs. at times
patient will fall asleep mid conversation. pt also with severe sleep apnea, oxygen dropping to 60s while sleeping. 6L NC applied while sleeping. okay on RA while awake. pt diaphoretic at times but when asked if he is hot patient denies. ST on the
monitor. rates 120s-160s at times. notified covering [facility], EKG done, confirmed sinus tachy. x1 STAT 5mg IV lopressor given with positive result. rates now 110s-120s at present. IV fluids infusing. bed alarm on currently d/t patient being slightly
forgetful right now. at times taking oxygen and blood pressure cuff off. pt is redirectable. care ongoing.
[2024-08-07] VITALS (21 sets, daily range): BP systolic 133–169; BP diastolic 89–115
[2024-08-07] MEDS: NSS 1000 IV ×4 (00:14→22:39)
[2024-08-07 00:50] LABS: Troponin I 0.033 ng/ml
[2024-08-07] MEDS: DILAUDID 1 MG IV ×14 (00:54→23:38)
[2024-08-07] MEDS: DILAUDID 2 MG IV ×3 (02:01→07:51)
[2024-08-07 05:28] LABS: ALT (SGPT) 27 U/L (0-50); AST (SGOT) 175 U/L (17-59); Albumin 5.1 g/dl (3.5-5.0); Alkaline Phosphatase 285 U/L (38-126); Blood Urea Nitrogen 13 mg/dl (9-20); Calcium 9.2 mg/dl (8.4-10.2); Carbon Dioxide 23 mmol/L (22-30); Chloride 110 mmol/L (98-107); Estimated Creatinine Clearance > 125 ml/min; Glucose 131 mg/dl (70-99); Potassium 4.7 mmol/L (3.5-5.1); Sodium 145 mmol/L (135-145); Total Bilirubin 3.1 mg/dl (0.2-1.3); Total Protein 8.4 g/dl (6.3-8.2); eGFR > 60.00
[2024-08-07 05:31] LABS: Hemoglobin 7.4 g/dL (13.0-18.0); Mean Corp Hgb Conc. 32.2 g/dL (33.0-37.0); Mean Corpuscular Hgb 19.9 pg (27.0-31.0); Mean Corpuscular Volume 61.8 fL (80.0-94.0); Platelet Count 199 10^3/uL (130-400); Red Blood Cell Count 3.72 10^6/uL (4.70-6.10); Red Cell Dist. Width 22.5 % (11.5-14.5); White Blood Cell Count 28.7 10^3/uL (4.8-10.8)
[2024-08-07 05:54] LABS: Absolute Neutrophils -Man Diff 21.8 10^3/uL (1.4-6.5); Band Neutrophils 6 % (0-3); Lymphocytes 12 % (20-51); Metamyelocytes 7 % (-); Monocytes 1 % (2-9); Segmented Neutrophils 70 % (42-75)
[2024-08-07 05:55] LABS: Myelocytes 4 % (-); Normal RBC Morphology No; Platelets Checked Yes
[2024-08-07 05:56] LABS: Anisocytosis 1+; Microcytosis 1+; Nucleated Red Blood Cells 55 (-); Polychromasia 1+
[2024-08-07 05:58] LABS: Hypochromasia 2+; Ovalocytes 1+; Schistocytes 1+; Target Cells 3+; Total Cells Counted 100
[2024-08-07] MEDS: FOLVITE 1 MG PO (07:51)
--- NOTE | 2024-08-07 08:48 | PTCARENOTE ---
Assumed care of patient at beginning of this shift from previous RN with O2 6L n/c in use. POx initially 93% when sleeping but did drop to low 80s. Once awake, POx 96%. Patient has CPAP machine at home but states he cannot wear it because it gives
him anxiety. HR 120s-140s, ST; BP 158/96. Patient receiving dilaudid 2mg Q3h with prn breakthrough of 1mg; prn dose given at 06:56; he rated pain 6/10 prior to morning scheduled dose. He states pain is mostly in his back and hips. Heme/onc up to see
patient; reviewed morning lab results, POx and HR. Patient Ox3 but drowsy and falls asleep frequently; easily arousable. See worklist for full assessment and vital signs.
--- NOTE | 2024-08-07 09:17 | W.PN.HOSP.TC ---
Today's Communication/Plan
-
Trial to cut back on Dilaudid but will likely need the higher dose for another 24 hours
c/w aggressive hydration
Add DVT prophylaxis with heparin SQ
Considering BB, will d/w cardiology
f/w echo of the heart, will be challenging with current tachycardia
Change chest x ray to portable
Might need blood transfusion/ hydroxyurea, await hematology evaluation
Assessment / Plan
Assessment / Plan
hysical examination- -
General: Uncomfortable, in extreme pain.
HEENT: No deformities, Neck Supple. Pale and dry mucous membrane
lungs/Chest: Some rales (tachypneic)
Heart regular Rhythm, Normal S1/S2, Regular Rate (tachycardic)
Abdomen: Soft, Non Tender, Non Distended,.
Extremities: No cyanosis
Neurological: awake , Oriented x3. Answers questions appropriately and follows commands
Skin: No ecchymosis
Psych: Anxious and in pain
# Sickle cell pain crisis
Positive reticulocytosis with Drop in hemoglobin from 9-7
Continue pain control, aggressive hydration
DVT prophylaxis
Will discuss with hematology if blood transfusion is needed specially with tachycardia
His pain seems to be responsive to opioid therapy which is good but I expect him to need higher dose for another 24/48 hours
Bowel regimen
Continue high care level in IMU
# Sickle cell disease with history of complications
Patient uses Motrin and heating pad. Had to tramadol prescription in the past.
Patient was able to report that he was taking hydroxyurea but due to lapse in insurance and no follow-up with his tissue rewinder. Unable to confirm the dose of hydroxyurea.
Follow-up with hematology recommendation
# Thrombocytosis, resolved
# History of leukocytosis, currently positive leukocytosis
No fever.
Order blood culture
# Sinus tachycardia/history of shortness of breath, chest pain.
Currently, no chest pain
Order echocardiogram
EKG consistent with sinus tachycardia
CT chest, no pulmonary embolism or infiltrate
Troponin on admission 0.014 then peaked at 0.055 then down to 0.033
Order portable chest x-ray for today
Continue oxygen supplementation
Monitor on telemetry
Discussed with business management specialist,
Total time spent to see the patient, examine the patient, review data and lab results, discuss treatment plan with patient, nursing staff, consultants around 59 minutes. �
Anticipated Discharge: > 48 hours
Subjective/Interval History
-
Date of Service: August 07, 2024
pain in right hip/knee and lower back
No abdominal pain or chest pain
Objective Data
-
Labs:
Laboratory Results
08/07/24
04:47
WBC 28.7 H
Hgb 7.4 L D
Hct 23.0 L
Plt Count 199 D
Sodium 145
Potassium 4.7
Chloride 110 H
Carbon Dioxide 23
BUN 13
Creatinine 0.8
Glucose 131 H
Calcium 9.2
Total Bilirubin 3.1 H
AST 175 H
ALT 27
Alkaline Phosphatase 285 H
Vital Signs:
Vital Signs
Temp Pulse Resp BP Pulse Ox
99.3 F 138 12 158/96 96
08/07/24 07:44 08/07/24 08:01 08/07/24 08:01 08/07/24 08:01 08/07/24 08:01
I&O
08/06/24 08/07/24 08/08/24
06:59 06:59 06:59
Intake Total 1800 / 1800
Output Total 1400 / 1400
Balance 400 / 400
--- NOTE | 2024-08-07 09:17 | CON.ONC ---
Impression
Impression
24 year old male
Sickle Cell Disease
Sickle Cell Crisis
Acute on Chronic Anemia
Plan
Plan
- WBCs 28.7, afebrile at this time, however bandemia of 6% in the setting of splenectomy, severe arthralgia, agree with Blood Cultures
- hgb drop from around baseline of 9.4 to 7.3 with concurrent elevated bilirubin 3.1, reticulocyte count 14.3%, RDW 22.5%, concern for hemolysis vs. component of hemodilution. No concern for aplastic anemia. Will continue to monitor. Will order 1U
pRBC, transfuse to keep <7.5.
- Will order TIBC, Ferritin, Total Iron, Iron Saturation. Suspect TIGIST at this time, with further OP follow up if needed.
- Will start on Folic Acid supplementation as inpatient. He should continue this as outpatient and at d/c start on Hydroxyurea 1g QD and follow up with Academy Director for continuing management.
- C/w pain control, IVF, infectious workup
- Agree to obtaining Echo
Significant hypoxemia can be a trigger for sickling crisis. Would STRONGLY encourage use of CPAP at home as chronic nocturnal hypoxemia can be contributing to his sickle cell crisis, along with a multitude of other comorbidities.
Should try to establish care with [facility] in (information given in Discharge instructions) as he is uninsured at this time and does not know when he will become employed/get new insurance. He really will need someone to manage his
Sickle Cell as an outpatient and so a Academy Director is ideal, but he should at least have a PCP to refill Hydroxyurea/Folic Acid until he can get insurance/find a Academy Director.
Patient History
History of Present Illness
24 year old male with a past medical significant for uncontrolled Sickle Cell Disease who presented in Sickle Cell Crisis to the [facility]. He was initially admitted for pain which was responding to opioid pain medication and was discharged yesterday,
but came back soon thereafter with chest pain, shortness of breath and worsening pain. He notes a significant change in social factors including losing his job within the last six months and losing his insurance. His mother endorses depressive
symptoms as his uncle within the year. He tells me that he has not seen a PCP or a Academy Director regularly for at least a year and has not had medication in at least six months. When he was regularly following up, he was taking hydroxyurea,
folic acid and penicillin. He has had splenectomy, cholecystectomy and a R hip arthroplasty at this stage of his disease. He did not have any URI sx, abdominal pain, nausea, vomiting, dysuria, fevers or chills prior to onset of his sickle crisis.
Presently, his attention waxes and wanes throughout the interview, seemingly attributed to high doses of Dilaudid he is receiving for pain. He does endorse a mild headache, back pain, L hip pain and significant dry mouth.
Past-Medical/Surgical History
Past Medical History: Uncontrolled Sickle Cell Disease
Past Surgical History: Cholecystectomy, Splenectomy, Total R Hip Arthroplasty
Patient Medication
�Medication �Instructions �Recorded �Confirmed �Last Taken �Type
folic acid 1 mg tablet 1 mg PO DAILY #30 tabs 08/06/24 08/06/24 Unknown Rx
ibuprofen 800 mg tablet 800 mg PO Q8HPRN PRN mild pain 08/06/24 08/06/24 Unknown History
oxycodone 5 mg tablet 5 mg PO TID PRN Pain #14 tabs 08/06/24 08/06/24 Unknown Rx
tramadol 50 mg tablet 50 mg PO Q6HPRN PRN moderate pain 08/06/24 08/06/24 08/05/24 11:00 History
Active Medications
Generic Name Dose Route Start Last Admin
Trade Name Freq PRN Reason Stop Dose Admin
Acetaminophen 650 mg 08/06/24 18:17
Acetaminophen 325 Mg Tablet PO 09/03/24 18:16
Q4HPRN PRN
SHAFFER/temp> 100.4F
Folic Acid 1 mg 08/07/24 08:00 08/07/24 07:51
Folic Acid 1 Mg Tablet PO 09/04/24 07:59 1 mg
DAILY CARROL Administration
Hydromorphone HCl 2 mg 08/06/24 20:00 08/07/24 07:51
Hydromorphone 1 Mg/Ml Carpuject IV 08/20/24 19:59 2 mg
Q3H CARROL Administration
Hydromorphone HCl 1 mg 08/06/24 18:17 08/07/24 06:56
Hydromorphone 1 Mg/Ml Carpuject IV 08/20/24 18:16 1 mg
Q1HPRN PRN Administration
Breakthrough pain
Sodium Chloride 1,000 mls @ 150 mls/hr 08/06/24 18:17 08/07/24 06:55
Nss IV 1,000 mls
.Q6H40M CARROL Administration
Ondansetron HCl 4 mg 08/06/24 18:17 08/06/24 20:03
Ondansetron 4 Mg/2 Ml Vial IV 09/03/24 18:16 4 mg
Q6HPRN PRN Administration
nausea and vomiting
Sodium Chloride 0 flush 08/06/24 19:00
Sodium Chloride 0.9% (Flush) Syringe IV 09/03/24 18:59
PER PROTOCOL CARROL
Review of Systems
-
History Source: Patient
Constitutional: Denies Fever, Weight Gain, No Appetite, Night Sweats or Chills
EENT: Reports No Symptoms
Respiratory: Reports No Symptoms
Cardiac: Reports No Symptoms
GI: Reports No Symptoms
Breast: Reports N/A
: Reports No Symptoms
Musculoskeletal: Reports Joint Pain and Arthralgias
Skin: Denies Itching or Rash
Neuro: Reports Headache; Denies Dizzy or Weakness
Endocrine: Reports No Symptoms
Hematologic/Lymphatic: Denies Bleeding, Swollen Glands, Bruising or Blood Clots
Allergy / Immunology: Reports No Symptoms
Psych: Reports No Symptoms
Physical Exam
-
General: Well Developed, Well Nourished, Pain and Morbidly Obese
HEENT: Moist Mucous Membranes; Negative Jaundice
Cardiology: S1, S2 and Other (Tachycardic); Negative No Murmur
Pulmonary: Clear; Negative Wheezes, Rales or Rhonchi
GI: Normal Bowel Sounds and Tense
Genito-Urinary: Deferred by me
Musculoskeletal: No Clubbing, No Cyanosis and No Edema
Skin: Warm, Dry and IV Access / Catheter Site
Hematologic / Lymphatic: No Petechiae
Psych: Other (Somnolent, but arousable)
Labs
Lab Results
WBC 28.7 10^3/uL (4.8-10.8) H 08/07/24 04:47
RBC 3.72 10^6/uL (4.70-6.10) L 08/07/24 04:47
Hgb 7.4 g/dL (13.0-18.0) L D 08/07/24 04:47
Hct 23.0 % (39.0-52.0) L 08/07/24 04:47
MCV 61.8 fL (80.0-94.0) L 08/07/24 04:47
MCH 19.9 pg (27.0-31.0) L 08/07/24 04:47
MCHC 32.2 g/dL (33.0-37.0) L 08/07/24 04:47
RDW 22.5 % (11.5-14.5) H 08/07/24 04:47
Plt Count 199 10^3/uL (130-400) D 08/07/24 04:47
MPV 9.0 fL (7.4-10.4) 08/07/24 04:47
Abs Immat Gran (auto) Cancelled 08/06/24 12:12
Absolute Neuts (auto) Cancelled 08/06/24 12:12
Absolute Lymphs (auto) Cancelled 08/06/24 12:12
Absolute Monos (auto) Cancelled 08/06/24 12:12
Absolute Eos (auto) Cancelled 08/06/24 12:12
Absolute Basos (auto) Cancelled 08/06/24 12:12
Immature Gran % Cancelled 08/06/24 12:12
Neutrophils % Cancelled 08/06/24 12:12
Lymphocytes % Cancelled 08/06/24 12:12
Monocytes % Cancelled 08/06/24 12:12
Eosinophils % Cancelled 08/06/24 12:12
Basophils % Cancelled 08/06/24 12:12
Creatinine 0.8 mg/dL (0.7-1.3) 08/07/24 04:47
Vital Signs
Vital Signs
Temp Pulse Resp BP Pulse Ox
99.3 F 138 12 158/96 96
08/07/24 07:44 08/07/24 08:01 08/07/24 08:01 08/07/24 08:01 08/07/24 08:01
--- NOTE | 2024-08-07 10:15 | PN.CDI ---
Addendum entered and electronically signed by Ihsan Sue MD 08/07/24 10:50:
hypoxia only
Original Note:
CDI
- -
CDI:
Physician Documentation Request
Admit Date: 08/06/24 16:20
Dear Doctor Linette,
Please review the following and provide your response in the progress notes.
Clinical Indicators:
H+P, 08/06
#Respiratory: Reports Trouble Breathing (Prior hyperventilating post nasal Narcan);
#Hypercapnia secondary to hyperventilation
08/06/24 23:22 - Patient Care Note
#...severe sleep apnea, oxygen dropping to 60s while sleeping.
#...6L NC applied while sleeping.
#...okay on RA while awake.
08/07/24 08:48 - Patient Care Note
#...O2 6L n/c in use. POx initially 93% when sleeping but did drop to low 80s.
#...Once awake, POx 96%.
Based on the above and your clinical assessment, please clarify which of the following accurately represents the patient's respiratory status:
Acute respiratory failure
Hypoxia
Hypercapnia
Other(please specify)
Additional information for Respiratory Failure:
Recognized criteria for Respiratory Failure (Source: [facility] Mar 2013)
Symptoms Please indicate type if known
1. Tachypnea, SOB, dyspnea Hypoxic
2. Use of accessory muscles Hypercapnic
3. Pallor or cyanosis Hypoxic and Hypercapnic
4. Anxiety or restlessness
5. Unable to speak in full sentences
Supplemental O2 of > 40% (5LPM) Intubation is not required
Use of terms such as suspected, likely, concern for, or probable (associated with a specific diagnosis that is being evaluated, monitored, or treated as if it exists) are acceptable and can be coded in the inpatient setting, when documented at the
time of discharge.
Thank you,
Lawanda Keys RN BSN CCDS
CDI Specialist
please contact via tiger text
Please use your independent medical judgment in providing your response.
--- NOTE | 2024-08-07 10:26 | PN.CDI ---
Addendum entered and electronically signed by Ihsan Sue MD 08/07/24 10:51:
Non ischemic myocardial injury
Original Note:
CDI
- -
CDI:
Physician Documentation Request
Admit Date: 08/06/24 16:20
Dear Doctor Linette,
Please review the following and provide your response in the progress notes.
Clinical Indicators:
Laboratory Tests
08/06/24 08/06/24 08/07/24
12:12 18:05 00:14
Troponin I 0.014 0.055 H* D 0.033 D
Based on the above, please clarify in the progress notes, the appropriate diagnosis, if significant, that supports the above abnormalities and additional evaluation, monitoring and/or treatment rendered:
Non ischemic myocardial injury
Abnormal lab value, clinically insignificant
Other(please specify)
Use of terms such as suspected, likely, concern for, or probable (associated with a specific diagnosis that is being evaluated, monitored, or treated as if it exists) are acceptable and can be coded in the inpatient setting, when documented at the
time of discharge.
Thank you,
Lawanda Keys RN BSN CCDS
CDI Specialist
please contact via tiger text
Please use your independent medical judgment in providing your response.
--- NOTE | 2024-08-07 10:29 | PN.CDI ---
Addendum entered and electronically signed by Ihsan Sue MD 08/07/24 10:51:
Elevated total bilirubin
Original Note:
CDI
- -
CDI:
Physician Documentation Request
Admit Date: 08/06/24 16:20
Dear Doctor Linette,
Please review the following and provide your response in the progress notes.
Clinical Indicators:
Laboratory Tests
08/06/24 08/07/24
12:12 04:47
Total Bilirubin 2.6 H 3.1 H
Based on the above, could you clarify in the progress notes, the appropriate diagnosis, if significant, that supports the above abnormalities and additional evaluation, monitoring and/or treatment rendered:
Elevated total bilirubin
Abnormal lab value, clinically insignificant
Other(please specify)
Use of terms such as suspected, likely, concern for, or probable (associated with a specific diagnosis that is being evaluated, monitored, or treated as if it exists) are acceptable and can be coded in the inpatient setting, when documented at the
time of discharge.
Thank you,
Lawanda Keys RN BSN CCDS
CDI Specialist
please contact via tiger text
Please use your independent medical judgment in providing your response.
--- NOTE | 2024-08-07 10:30 | W.PN.CD ---
Today's Communication / Plan
-
start low dose bb
echo
continue treatment of scc
consider neuroimaging
Impression / Plan
-
I/P: 24M with sickle cell disease & INDIO on CPAP who presents with sickle cell crisis C/O SOB, CP, and joint pain
Sickle cell crisis
-Fluids and pain mgmt per primary
-pain in tailbone and legs improving
-sob improve, covid/flu negative
-Heme/Onc consulted by primary service
Nonischemic myocardial injury due to acute sickle cell crisis and tachycardia
-echo pending
Tachycardia, sinus,
-appropriate physiologic response to acute pain
-degree of elevation not unexpected in 24 yo with normal, healthy conduction systme
HTN:
-mother at bedside, states it has been elevated for some time as op and left untreated
-will start low dose bb
AMS:
-mother thinks is different than prior crisis
-suspect due to narcotics
-given SCC and HTN, consider neuroimaging, d/w Dr Sue
Pain, in the setting of sickle cell crisis
INDIO, on CPAP
Obesity, BMI 40.1, he would benefit from weight loss
Subjective: he is lethargic, but feeling better, he denies sob and cp, pain in tailbone and legs improved but persistent
Physical Exam
Vital Signs/Labs
Vital Signs
Temp Pulse Resp BP Pulse Ox
99.3 F 138 12 158/96 96
08/07/24 07:44 08/07/24 08:01 08/07/24 08:01 08/07/24 08:01 08/07/24 08:01
08/06/24 08/07/24 08/08/24
06:59 06:59 06:59
Actual Weight 122 kg
08/07/24 04:47
08/07/24 04:47
LAB Results
04/06/0108/06/24 08/07/24
12:12 18:05 00:14
Troponin I 0.014 0.055 H* D 0.033 D
Physical Exam
Constitutional: No acute distress
Cardiovascular: Rhythm & rate is regular (but tachycardic), Systolic murmur absent and Diastolic murmur absent
Respiratory: Respiratory effort normal, Lungs clear to auscul., Wheeze Absent, Crackles Absent and Rhonchi Absent
Neuro/Psych: AO x 3
Data Reviewed
-
Date of Service: August 07, 2024
Medical Decision Making: Review of Case with other Provider (Dr Sue, echo pending starting bb, consider neuroimaging)
EKG: Other (tele with sinus tachycardia)
[2024-08-07 11:10] LABS: Iron 274 ug/dl (49-181)
[2024-08-07] MEDS: LOPRESSOR 12.5 MG PO (11:17)
[2024-08-07 11:20] LABS: Percent Saturation 81 % (20-50); Total Iron Binding Capacity 337 ug/dl (261-462)
--- NOTE | 2024-08-07 12:35 | CM ---
Spoke with patient's mother to obtain information for assessment. She stated that patient goes by 'Nicolas' which is his middle name. He lives in a two story apartment with her and no steps to enter. He has been independent with his ADLs, personal
care, dressing and bathing. 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 He is able to drive and he can transport himself to his appointments and can do his own shopping. He has had VN in
the past through [facility]. Patient's mother stated that patient had a hip replacement and subsequently went to a SNF in [place] however she does not remember which one.
Patient is currently on o2 in room as he was sob upon admission. He does not have o2 at home. He has no DME. He did have a CPAP but stopped using it.
Patient has a prescription plan and uses, [facility] on [address] [facility], , for all of his medications.
His PCP is, unlisted. Will have to f/u with patient to determine if he has one.
Patient's mother is hopeful that patient will be able to return right home when medically cleared for discharge and is hoping to not need any services.
Plan: Case management will continue to follow and assist with discharge planning. Home when stable. Will need to watch for any o2 needs.
[2024-08-07 13:21] LABS: Ferritin > 10000.0 ng/ml (17.9-464.0)
[2024-08-07] MEDS: TYLENOL 650 MG PO (14:57)
[2024-08-07] MEDS: HEPARIN 5000 UNITS SC ×2 (15:40→23:38)
--- NOTE | 2024-08-07 15:57 | PTCARENOTE ---
Assumed care of patient at beginning of this shift from previous RN. Patient very drowsy, falling asleep during conversation this morning. Scheduled dilaudid 2mg Q3h changed to dilaudid 1mg Q3h; breakthrough dilaudid remains. See worklist for med
administration times. Patient continues to sleep most of the time but is easily arousable and Ox3. PRBC currently infusing. HR remains tachycardic, he was as high as 170s this morning, but mostly 120s-130s; Dr Ahumada in to see patient and made
aware. Lopressor ordered and given. BP currently 133/97. see worklist for full assessment and vital signs.
--- NOTE | 2024-08-07 18:12 | PTCARENOTE ---
PRBC infused without difficulty. BP 170/125 post transfusion with patient c/o pain after scheduled dose of dilaudid given. Reviewed times with pharmacist Zoya; ok to give prn breakthrough dose. BP 164/[address] Sue
notified via TT. Patient currently asleep.
[2024-08-07] MEDS: SENOKOT-S 2 TABLET PO (20:55)
[2024-08-07] MEDS: LOPRESSOR 25 MG PO (20:56)
[2024-08-08] VITALS (21 sets, daily range): BP systolic 141–193; BP diastolic 86–162
[2024-08-08] MEDS: DILAUDID 1 MG IV ×15 (01:18→23:16)
[2024-08-08] MEDS: TYLENOL 650 MG PO (01:18)
--- NOTE | 2024-08-08 03:03 | PTCARENOTE ---
Pt received from previous RN. Pt AAOx3, drowsy at times, arousable to verbal stimuli. Mom at bedside. Pt in visible discomfort, unable to get comfortable r/t pain. pain medication administered as ordered, pain maintained to best of this RNs ability/
safest level provided. see MAR. pt on 6L 02, r/t desatting with sleep. 95% & greater when awake, Pt desats to 88% when 02 is taken out by himself when sleeping. 02 replaced by this RN. Assessment as documented. Call light in reach.
[2024-08-08 04:26] LABS: Amphetamines Negative (Negative); Barbiturates Negative (Negative); Benzodiazepines Negative (Negative); Buprenorphine Negative (Negative); Cocaine Negative (Negative); Marijuana Positive (Negative); Methadone Negative (Negative); Methamphetamines Negative (Negative); Opiates Positive (Negative); Phencyclidine Negative (Negative); Tricyclic Antidepressants Negative (Negative)
[2024-08-08 04:43] LABS: Fentanyl, Urine Negative (Negative)
[2024-08-08 05:01] LABS: Hematocrit 23.6 % (39.0-52.0); Hemoglobin 7.6 g/dL (13.0-18.0); Mean Corp Hgb Conc. 32.2 g/dL (33.0-37.0); Mean Corpuscular Hgb 20.1 pg (27.0-31.0); Mean Corpuscular Volume 62.4 fL (80.0-94.0); Mean Platelet Volume 8.9 fL (7.4-10.4); Platelet Count 202 10^3/uL (130-400); Red Blood Cell Count 3.78 10^6/uL (4.70-6.10); Red Cell Dist. Width 25.2 % (11.5-14.5); White Blood Cell Count 20.4 10^3/uL (4.8-10.8)
[2024-08-08 05:20] LABS: ALT (SGPT) 28 U/L (0-50); AST (SGOT) 291 U/L (17-59); Albumin 3.9 g/dl (3.5-5.0); Alkaline Phosphatase 786 U/L (38-126); Blood Urea Nitrogen 17 mg/dl (9-20); Calcium 9.3 mg/dl (8.4-10.2); Carbon Dioxide 23 mmol/L (22-30); Chloride 103 mmol/L (98-107); Estimated Creatinine Clearance > 125 ml/min; Glucose 130 mg/dl (70-99); Potassium 4.7 mmol/L (3.5-5.1); Sodium 136 mmol/L (135-145); Total Bilirubin 5.7 mg/dl (0.2-1.3); Total Protein 7.1 g/dl (6.3-8.2); eGFR > 60.00
[2024-08-08] MEDS: NSS 1000 IV ×3 (06:29→23:17)
[2024-08-08] MEDS: FOLVITE 1 MG PO (07:36)
[2024-08-08] MEDS: LOPRESSOR 25 MG PO ×2 (07:36→19:22)
[2024-08-08] MEDS: MIRALAX PO (07:37)
[2024-08-08] MEDS: HEPARIN 5000 UNITS SC ×2 (07:37→16:25)
[2024-08-08 07:54] LABS: Absolute Neutrophils -Man Diff 15.5 10^3/uL (1.4-6.5); Anisocytosis 1+; Band Neutrophils 1 % (0-3); Hypochromasia 2+; Lymphocytes 22 % (20-51); Monocytes 2 % (2-9); Normal RBC Morphology No; Nucleated Red Blood Cells 270 (-); Platelets Checked Yes; Polychromasia 2+; Segmented Neutrophils 75 % (42-75)
[2024-08-08 07:55] LABS: Howell Jolly Bodies 1+; Ovalocytes 2+; Schistocytes 1+; Sickled Red Blood Cells 1+; Tear Drop Red Blood Cells FEW; Total Cells Counted 100
[2024-08-08 07:56] LABS: Spherocytes 1+; Target Cells 2+
--- NOTE | 2024-08-08 09:37 | W.PN.HOSP.TC ---
Addendum entered and electronically signed by Ihsan Sue MD 08/08/24 13:01:
non-ischemic myocardial injury in setting of tachycardia/ anemia
Original Note:
Today's Communication/Plan
-
High BP , untreated INDIO, pt does not use his C pap. Added PRN CPAP
c/w BB for reactive sinus tachycardia
Cut back on IV Dilaudid and add low dose Toradol ( Mother: patient received IV Morphine & Toradol in past during acute pain)
Assessment / Plan
Assessment / Plan
Physical examination- -
General: Uncomfortable, in extreme pain.
HEENT: No deformities, Neck Supple. Pale and dry mucous membrane
lungs/Chest: Some rales (tachypneic)
Heart regular Rhythm, Normal S1/S2, Regular Rate (tachycardic)
Abdomen: Soft, Non Tender, Non Distended,.
Extremities: No cyanosis
Neurological: awake , Oriented x3. Answers questions appropriately and follows commands
Skin: No ecchymosis
Psych: Anxious and in pain
# Sickle cell pain crisis
Positive reticulocytosis with Drop in hemoglobin from 9-7 due to hemolytic anemia.
Continue pain control, s/p aggressive hydration, will cut back on IVF rate
DVT prophylaxis
d/w hematology, s/p one unit of blood /.
His pain seems to be responsive to opioid therapy which is good but I expect him to need higher dose for another 24/48 hours
Bowel regimen
Continue high care level in IMU
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 Elevated liver enzyme. Elevated alkaline phosphatase. Elevated ferritin. Normal iron level
# hypoxia only due to combination of untreated INDIO/ Dilaudid
c/w O2 supplement
Does not want to use Cpap, ordered.
# Sickle cell disease with history of complications
Patient uses Motrin and heating pad. Had to tramadol prescription in the past.
Patient was able to report that he was taking hydroxyurea but due to lapse in insurance and no follow-up with his hand brim ironer. Unable to confirm the dose of hydroxyurea.
Follow-up with hematology recommendation
# Thrombocytosis, resolved
# History of leukocytosis, currently positive leukocytosis
No fever.
Order blood culture
# Opioid induced encephalopathy
Non focal on exam, will cut back on Dilaudid, pt seems reluctant but counseled. Per mother, pt received IV Toradol & Morphine in past while in severe pain.
# High blood pressure
suspect due to untreated INDIO
Was elevated on admission
# Urine drug screen positive for marijuana
# Sinus tachycardia/history of shortness of breath, chest pain.
Currently, no chest pain
Ordered echocardiogram and was unremarkable.
EKG consistent with sinus tachycardia
CT chest, no pulmonary embolism or infiltrate
Troponin on admission 0.014 then peaked at 0.055 then down to 0.033
Repeat chest x-ray showed no active disease. f
Continue oxygen supplementation
Monitor on telemetry
Discussed with cardiologis. ,
Total time spent to see the patient, examine the patient, review data and lab results, discuss treatment plan with patient, mother, nursing staff, consultants around 57 minutes. �
Anticipated Discharge: > 48 hours
Subjective/Interval History
-
Date of Service: August 08, 2024
No chest pain
No sob
No fevers
Objective Data
-
Labs:
Laboratory Results
08/08/24
04:25
WBC 20.4 H
Hgb 7.6 L
Hct 23.6 L
Plt Count 202
Sodium 136 D
Potassium 4.7
Chloride 103
Carbon Dioxide 23
BUN 17
Creatinine 0.8
Glucose 130 H
Calcium 9.3
Total Bilirubin 5.7 H D
AST 291 H
ALT 28
Alkaline Phosphatase 786 H
Vital Signs:
Vital Signs
Temp Pulse Resp BP Pulse Ox
98.5 F 127 29 171/103 96
08/08/24 07:24 08/08/24 08:00 08/08/24 08:00 08/08/24 08:00 08/08/24 08:23
I&O
08/07/24 08/08/24 08/09/24
06:59 06:59 06:59
Intake Total 1800 / 1800 4400 / 4400 480 / 480
Output Total 1400 / 1400 4450 / 4450 1000 / 1000
Balance 400 / 400 -50 / -50 -520 / -520
--- NOTE | 2024-08-08 10:14 | PTCARENOTE ---
nursing assessment as charted. pt tachypnic, tachycardic, hypertensive with bps 160-170/100. sats in 90s on 6 liters o2.am lopressor dose given as ordered. discussed with hospitalist and cardiology. pt is drowsy but awakens to voice. he is drinking
fluids but does not want to eat any solid food. he is refusing am care at this time. voiding large amount of abby urine. iv fluids infusing.
--- NOTE | 2024-08-08 10:17 | W.PN.ONC2 ---
Today's Communication / Plan
-
C/w Folic acid supplementation. Transfuse if needed. Will follow blood cultures. C/w pain meds, fluids. Encourage CPAP usage at night.
Impression
Impression
24 year old male
Sickle Cell Disease
Sickle Cell Crisis
Acute on Chronic Anemia
Plan
Plan
- hgb drop with concurrent elevated bilirubin, elevated reticulocyte count 14.3%, concern for hemolysis vs. component of hemodilution. No concern for aplastic anemia. Will continue to monitor. S/p 1uPRBCs. Transfuse to keep <7.5.
- TIBC 337, Iron 274 H, %sat. 81% H, Ferritin >10,000, likely lab error due to hemolysis in the tube
- C/w Folic Acid supplementation. Will recommend starting on Hydroxyurea 1g/QD as outpatient.
- C/w pain control, IVF, infectious workup. BCx pending.
- Echo showing EF ~58%
- Persistent tachycardia in the setting of chest pain complaints, with elevated troponins, patient may benefit from CTA if tachycardia does not resolve.
Significant hypoxemia can be a trigger for sickling crisis. Would STRONGLY encourage use of CPAP at home as chronic nocturnal hypoxemia can be contributing to his sickle cell crisis, along with a multitude of other comorbidities.
Information left with mother for patient to follow up with [facility] until he can get insurance.
Subjective/Objective
Chief Complaint
Sickle Cell Crisis
Subjective
Feeling about the same this morning. pain is controlled on current dose Dilaudid, however he is intermittently somnolent which is a new phenomenon per mother at bedside. No new headaches, vision changes, neck pain, or other neurological symptoms at
this time.
Vital Signs:
Vital Signs
Temp Pulse Resp BP Pulse Ox
98.5 F 127 29 171/103 96
08/08/24 07:24 08/08/24 08:00 08/08/24 08:00 08/08/24 08:00 08/08/24 08:23
Lab Results:
Laboratory Data
WBC 20.4 10^3/uL (4.8-10.8) H 08/08/24 04:25
Hgb 7.6 g/dL (13.0-18.0) L 08/08/24 04:25
Plt Count 202 10^3/uL (130-400) 08/08/24 04:25
eGFR > 60.00 08/08/24 04:25
Physical Exam
HEENT: Moist Mucous Membranes; No Jaundice
Cardiology: S1, S2 and Other (Tachycardic); No Murmur
Pulmonary: Clear; No Wheezes, Rales or Rhonchi
GI: Soft and Normal Bowel Sounds
Extremities: No C/C/E
Review of Systems
Review of Systems
Constitutional: Denies Fever or Fatigue
Head: Denies Sore Throat or Hearing Loss
Respiratory: Denies Dyspnea or Cough
Cardiovascular: Denies Chest Pain or Palpitations
Gastrointestinal: Denies Nausea/Vomiting or Diarrhea
Genitourinary: Denies Hematuria
Skin: Denies Rash or Pruritis
Neurological: Denies Headache or Numbness
Hem/Lymphatic: Denies Easy Bruising, Night Sweats or Swollen Glands
Orders
Orders
Orders From Last 24 Hours
08/07/24 09:55
Add On- LAB Routine
08/07/24 11:15
Blood Bank Products [* Blood Bank Products] Routine
--- NOTE | 2024-08-08 10:23 | W.PN.CD ---
Today's Communication / Plan
-
Add valsartan
Impression / Plan
-
I/P: 24M with sickle cell disease & INDIO on CPAP who presents with sickle cell crisis C/O SOB, CP, and joint pain
Sickle cell crisis
Nonischemic myocardial injury due to acute sickle cell crisis and tachycardia
-echo unremarkable
-peak trop 0.055
Tachycardia, sinus,
-secondary to medical illness
HTN:
-seems to precede crisis
-Given young age may look for secondary causes now or in near future, Dr. Ahumada discussed neuroimaging with Dr Sue
-will add Valsartan to the metoprolol
INDIO, on CPAP
Obesity, BMI 40.1, he would benefit from weight loss
Subjective:Alert appropriate. No CP, palpitations, or dyspnea.
Physical Exam
Vital Signs/Labs
Vital Signs
Temp Pulse Resp BP Pulse Ox
98.5 F 127 29 171/103 96
08/08/24 07:24 08/08/24 08:00 08/08/24 08:00 08/08/24 08:00 08/08/24 08:23
08/07/24 08/08/24 08/09/24
06:59 06:59 06:59
Actual Weight 122 kg
08/08/24 04:25
08/08/24 04:25
LAB Results
08/06/24 08/06/24 08/07/24
12:12 18:05 00:14
Troponin I 0.014 0.055 H* D 0.033 D
Physical Exam
Constitutional: No acute distress
EENT: Anicteric
Cardiovascular: Rhythm & rate is regular and Pedal edema is absent
Respiratory: Respiratory effort normal and Lungs clear to auscul.
GI: Soft and Distention absent
Neuro/Psych: AO x 3
Data Reviewed
-
Date of Service: August 08, 2024
[2024-08-08] MEDS: DIOVAN 160 MG PO (11:25)
--- NOTE | 2024-08-08 11:40 | PTCARENOTE ---
diovan administered. pt states pain is 'not as bad' but unable to rate with a number.
[2024-08-08] MEDS: SENOKOT-S 2 TABLET PO (19:21)
[2024-08-09] VITALS (22 sets, daily range): BP systolic 111–164; BP diastolic 63–104; PULSE 120–143; O2SAT 96–97; BMI 40.6
[2024-08-09] MEDS: HEPARIN 5000 UNITS SC ×3 (00:02→15:27)
[2024-08-09] MEDS: TYLENOL 650 MG PO ×2 (00:02→08:33)
[2024-08-09] MEDS: DILAUDID 1 MG IV ×8 (01:11→19:42)
--- NOTE | 2024-08-09 02:13 | PTCARENOTE ---
pt AAox3. frequently c/o pain. pain controlled to the best of this RNs ability per pain medication orders. see MAR. sinus tach on monitor. took hs bp meds. urinating in urinal. assessment as documented. call light in reach.
[2024-08-09 05:49] LABS: Hematocrit 20.6 % (39.0-52.0); Mean Corpuscular Hgb 20.6 pg (27.0-31.0); Mean Corpuscular Volume 60.6 fL (80.0-94.0); Platelet Count 139 10^3/uL (130-400); Red Cell Dist. Width 25.2 % (11.5-14.5); White Blood Cell Count 11.3 10^3/uL (4.8-10.8)
[2024-08-09 06:05] LABS: ALT (SGPT) 22 U/L (0-50); AST (SGOT) 136 U/L (17-59); Albumin 3.5 g/dl (3.5-5.0); Alkaline Phosphatase 593 U/L (38-126); Blood Urea Nitrogen 12 mg/dl (9-20); Calcium 9.4 mg/dl (8.4-10.2); Carbon Dioxide 27 mmol/L (22-30); Chloride 100 mmol/L (98-107); Estimated Creatinine Clearance > 125 ml/min; Glucose 116 mg/dl (70-99); Sodium 135 mmol/L (135-145); Total Bilirubin 3.5 mg/dl (0.2-1.3); Total Protein 6.3 g/dl (6.3-8.2); eGFR > 60.00
--- NOTE | 2024-08-09 06:49 | W.PN.UPDATE ---
Update Note
Progress Note Update
hgb 7.0 20.6 blood consent in chart signed, type and screen done, will order 1 unit of PRBC. stable VS, no new complaints.
[2024-08-09] MEDS: DIOVAN 160 MG PO (07:36)
[2024-08-09] MEDS: MIRALAX 17 GRAMS PO (07:36)
[2024-08-09] MEDS: LOPRESSOR 50 MG PO (07:36)
[2024-08-09] MEDS: FOLVITE 1 MG PO (07:36)
[2024-08-09] MEDS: DILAUDID IV (07:38)
--- NOTE | 2024-08-09 08:26 | W.PN.HOSP.TC ---
Today's Communication/Plan
-
Cut back on Dilaudid
PT/OT
One unit of blood
Assessment / Plan
Assessment / Plan
Physical examination- -
General: not in distress, does not look in pain Uncomfortable, in extreme pain.
HEENT: No deformities, Neck Supple. Pale and dry mucous membrane
lungs/Chest: Some rales (tachypneic)
Heart regular Rhythm, Normal S1/S2, Regular Rate (tachycardic)
Abdomen: Soft, Non Tender, Non Distended,.
Extremities: No cyanosis
Neurological: awake , Oriented x3. Answers questions appropriately and follows commands
Skin: No ecchymosis
Psych: calm, sleepy most times.
# Sickle cell pain crisis
Positive reticulocytosis with Drop in hemoglobin from 9-7 due to hemolytic anemia.
S?P high dose Dilaudid ATC and aggressive hydration
Stop Standing dose of Dilaudid, change to As needed only
c/w IV Toradol
PRN Tylenol PRN
DVT prophylaxis
d/w hematology, s/p one unit of blood 4/. HGB 7.0 , given another unit 4/4
c/w Bowel regimen
Continue high care level in IMU
# fever
One time over night
afebrile today, he is feeling better
will f/w blood culture
d/w ID, recommend monitoring for now. SS crisis can cause fevers at times.
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 Elevated liver enzyme. Elevated alkaline phosphatase. Elevated ferritin. Normal iron level
# hypoxia only due to combination of untreated INDIO/ Dilaudid
c/w O2 supplement
Does not want to use Cpap, ordered.
# Sickle cell disease with history of complications
Patient uses Motrin and heating pad. Had to tramadol prescription in the past.
Patient was able to report that he was taking hydroxyurea but due to lapse in insurance and no follow-up with his ink blender. Unable to confirm the dose of hydroxyurea.
Follow-up with hematology recommendation
# Thrombocytosis, resolved
# History of leukocytosis, currently positive leukocytosis
No fever.
Order blood culture
# Opioid induced encephalopathy
Non focal on exam, will cut back on Dilaudid, pt seems reluctant but counseled. Per mother, pt received IV Toradol & Morphine in past while in severe pain.
# High blood pressure
suspect due to untreated INDIO
Was elevated on admission
c/w BB and Diovan
# Urine drug screen positive for marijuana
# Sinus tachycardia/history of shortness of breath, chest pain.
Currently, no chest pain
Ordered echocardiogram and was unremarkable.
EKG consistent with sinus tachycardia
CT chest, no pulmonary embolism or infiltrate
Troponin on admission 0.014 then peaked at 0.055 then down to 0.033
Repeat chest x-ray showed no active disease. f
Continue oxygen supplementation
Monitor on telemetry
Discussed with cvor nurse. no need for OP follow up, can follow with PCP for HTN.
Total time spent to see the patient, examine the patient, review data and lab results, discuss treatment plan with patient, mother, nursing staff, consultants around 57 minutes. �
Anticipated Discharge: > 48 hours
Subjective/Interval History
-
Date of Service: August 09, 2024
His pain is less today
No chest pain
No sob
Objective Data
-
Labs:
Laboratory Results
08/09/24
05:23
WBC 11.3 H
Hgb 7.0 L
Hct 20.6 L*
Plt Count 139 D
Sodium 135
Potassium 4.0
Chloride 100
Carbon Dioxide 27
BUN 12
Creatinine 0.5 L
Glucose 116 H
Calcium 9.4
Total Bilirubin 3.5 H
AST 136 H
ALT 22
Alkaline Phosphatase 593 H
Vital Signs:
Vital Signs
Temp Pulse Resp BP Pulse Ox
97.7 F 111 32 148/87 95
08/09/24 02:41 08/09/24 06:00 08/09/24 06:00 08/09/24 06:00 08/09/24 06:00
I&O
08/08/24 08/09/24 08/10/24
06:59 06:59 06:59
Intake Total 4400 / 4400 3340 / 3340
Output Total 4450 / 4450 5700 / 5700
Balance -50 / -50 -2360 / -2360
--- NOTE | 2024-08-09 08:41 | W.PN.ONC2 ---
Today's Communication / Plan
-
.
Impression
Impression
24 year old male a/w vaso-occlusive crisis
Acute on Chronic Anemia
fever, leukocytosis -influenza negative, Bcx NTD, CTA/CXR no PNA
hypoxia - CTA no PE
mild left axillary lymphadenopathy 1.3 x 1.0cm
UDS opiates & marijuana
cardiomegaly, LVEF 58%
Plan
Plan
- Transfuse to keep <7.5.
- C/w Folic Acid supplementation. Will recommend starting on Hydroxyurea 1g/QD as outpatient.
- C/w pain control, IVF, supplemental o2
- infectious w/u per primary service, currently not on abx -could consider add'l infectious work up with new fever discussed with hospitalist
- on dvt ppx
Significant hypoxemia can be a trigger for sickling crisis. Would STRONGLY encourage use of CPAP at home as chronic nocturnal hypoxemia can be contributing to his sickle cell crisis, along with a multitude of other comorbidities.
Information left with mother for patient to follow up with [facility] until he can get insurance.
Subjective/Objective
Subjective
using tylenol, hydromorphone IV for pain
using mirlax for constipation
Tmax 101.6F
improved O2 requirement to 3L
nasal congestion
Vital Signs:
Vital Signs
Temp Pulse Resp BP Pulse Ox
98.8 F 117 30 147/88 95
08/09/24 08:39 08/09/24 08:39 08/09/24 08:39 08/09/24 08:39 08/09/24 06:00
Lab Results:
Laboratory Data
WBC 11.3 10^3/uL (4.8-10.8) H 08/09/24 05:23
Hgb 7.0 g/dL (13.0-18.0) L 08/09/24 05:23
Plt Count 139 10^3/uL (130-400) D 08/09/24 05:23
eGFR > 60.00 08/09/24 05:23
--- NOTE | 2024-08-09 08:48 | PTCARENOTE ---
hemoglobin 7.0 this am. one unit prbcs ordered and transfusion initiated. pt had ax temp of 100.3 earlier, now down to 98.8. per discussion with Dr Sue and pt premedicated with Tylenol prior to initiation of transfusion.
--- NOTE | 2024-08-09 08:51 | W.PN.CD ---
Today's Communication / Plan
-
Move to long acting BB
His PCP will manage his HTN
Suggest outpatient referral to nephrology for consideration of workup for secondary causes of HTN given his young age
Cardiology will sign off
Impression / Plan
-
I/P: 24M with sickle cell disease & INDIO on CPAP who presents with sickle cell crisis C/O SOB, CP, and joint pain
Sickle cell crisis
Severe anemia
Nonischemic myocardial injury due to acute sickle cell crisis and tachycardia
-echo unremarkable
-peak trop 0.055
Tachycardia, sinus,
-secondary to medical illness
-DOES NOT NEED SPECIFIC THERAPY
HTN:
-seems to precede crisis
-Given young age may look for secondary cause once stable, as an outpatient
-Dr. Ahumada discussed neuroimaging with Dr Sue
-Continue BB and ARB
-Suggest waiting 2-3 weeks prior to increasing dose
INDIO, on CPAP
Obesity, BMI 40.1, he would benefit from weight loss
Subjective:Alert appropriate. No CP, palpitations, or dyspnea.
Physical Exam
Vital Signs/Labs
Vital Signs
Temp Pulse Resp BP Pulse Ox
98.8 F 117 30 147/88 95
08/09/24 08:39 08/09/24 08:39 08/09/24 08:39 08/09/24 08:39 08/09/24 06:00
08/08/24 08/09/24 08/10/24
06:59 06:59 06:59
Actual Weight 121 kg
08/09/24 05:23
08/09/24 05:23
LAB Results
08/06/24 08/06/24 08/07/24
12:12 18:05 00:14
Troponin I 0.014 0.055 H* D 0.033 D
Physical Exam
Constitutional: No acute distress
Cardiovascular: Rhythm & rate is regular and Pedal edema is absent
Respiratory: Respiratory effort normal and Lungs clear to auscul.
GI: Soft
Neuro/Psych: AO x 3
Data Reviewed
-
Date of Service: August 09, 2024
[2024-08-09] MEDS: TOPROL XL PO (09:00)
[2024-08-09 09:02] LABS: Absolute Neutrophils -Man Diff 9.3 10^3/uL (1.4-6.5); Band Neutrophils 2 % (0-3); Lymphocytes 14 % (20-51); Metamyelocytes 3 % (-); Normal RBC Morphology No; Platelets Checked Yes; Segmented Neutrophils 81 % (42-75)
[2024-08-09 09:03] LABS: Anisocytosis 1+; Basophilic Stippling 2+; Hypochromasia 3+; Nucleated Red Blood Cells 280 (-); Polychromasia 1+; Target Cells 2+
[2024-08-09 09:04] LABS: Acanthocytes 1+; Howell Jolly Bodies 1+; Ovalocytes 2+; Schistocytes 1+; Sickled Red Blood Cells 1+; Tear Drop Red Blood Cells 1+; Total Cells Counted 100
--- NOTE | 2024-08-09 15:19 | CM ---
Patient with Hx sickle cell disease with Dx sickle cell crisis. O2 4L. Febrile earlier today. Transfusion today. Receiving IVF, IV Dilaudid prn.
CM continuing to follow.
Plan watch for possible O2 needs.
Plan home.
[2024-08-09] MEDS: NSS 1000 IV (15:20)
[2024-08-09] MEDS: SENOKOT-S 2 TABLET PO (22:08)
[2024-08-09] MEDS: TORADOL 15 MG IV (22:08)
--- NOTE | 2024-08-09 22:31 | W.PN.UPDATE ---
Update Note
Progress Note Update
Asked to see patient for swollen right lower lip. Patient w/complaints of some pain, noted swelling and rash (appears to be small, clustered, fluid filled blisters, that have crusted over). Patient stated that he has had this happen previously.
Ordered Acyclovir cream and apply ice for swelling/comfort as needed.
~ AM labs, Hgb 6.6, Hct 19.3. Ordered 1 unit PRBC's to be transfused.
[2024-08-10] VITALS (23 sets, daily range): BP systolic 100–159; BP diastolic 59–94; BMI 40.0
[2024-08-10] MEDS: HEPARIN 5000 UNITS SC ×3 (00:04→17:00)
[2024-08-10] MEDS: ZOVIRAX OINTMENT 5% 1 APPLIC TOPICAL ×6 (00:04→22:25)
--- NOTE | 2024-08-10 02:21 | PTCARENOTE ---
Pt AAOx3 tearful at times, emotional support given. Pt requesting pain medication requesting to try Toradol. On reassessment Pt appears to be sleeping comfortably, respiration even unlabored spo2 98% 2L. Pt having complaints of mouth soreness upon
assessment Pt noted to have cracked lips with pustule rash/ lesion. BUSINESS ACCOUNT MANAGER at bed side to order treatment for discomfort. Assessment care and vitals as charted.
[2024-08-10] MEDS: NSS 1000 IV ×2 (03:03→18:04)
[2024-08-10] MEDS: DILAUDID 1 MG IV (03:03)
[2024-08-10 05:52] LABS: Hematocrit 19.3 % (39.0-52.0); Hemoglobin 6.6 g/dL (13.0-18.0); Mean Corp Hgb Conc. 34.2 g/dL (33.0-37.0); Mean Corpuscular Hgb 21.4 pg (27.0-31.0); Mean Corpuscular Volume 62.5 fL (80.0-94.0); Platelet Count 101 10^3/uL (130-400); Red Blood Cell Count 3.09 10^6/uL (4.70-6.10); Red Cell Dist. Width 27.3 % (11.5-14.5); White Blood Cell Count 9.5 10^3/uL (4.8-10.8)
[2024-08-10 05:55] LABS: Reticulocyte Count 3.8 % (0.4-2.8)
[2024-08-10 06:09] LABS: ALT (SGPT) 16 U/L (0-50); AST (SGOT) 67 U/L (17-59); Albumin 2.8 g/dl (3.5-5.0); Alkaline Phosphatase 365 U/L (38-126); Blood Urea Nitrogen 15 mg/dl (9-20); Carbon Dioxide 33 mmol/L (22-30); Chloride 99 mmol/L (98-107); Estimated Creatinine Clearance > 125 ml/min; Glucose 108 mg/dl (70-99); Potassium 3.5 mmol/L (3.5-5.1); Sodium 136 mmol/L (135-145); Total Bilirubin 2.8 mg/dl (0.2-1.3); Total Protein 5.4 g/dl (6.3-8.2); eGFR > 60.00
--- NOTE | 2024-08-10 06:31 | PTCARENOTE ---
Pt morning labs showing drop in H&H, night HOME ENERGY CONSULTANT SUPERVISOR made aware. 1 Unit of PRBC ordered.
--- NOTE | 2024-08-10 07:38 | PTCARENOTE ---
Assumed care of patient from previous RN. Night ANESTHESIOLOGIST AND CRITICAL CARE ordered 1 unit PRBC for patient; this morning Dr Sue ordered 2 units PRBCs. Blood bank called to clarify order. TT sent to Dr Sue to cancel order not wanted. Await update.
[2024-08-10] MEDS: MIRALAX 17 GRAMS PO (08:08)
[2024-08-10] MEDS: DIOVAN 160 MG PO (08:08)
[2024-08-10] MEDS: TOPROL XL 50 MG PO (08:08)
[2024-08-10] MEDS: FOLVITE 1 MG PO (08:08)
--- NOTE | 2024-08-10 09:19 | W.PN.HOSP.TC ---
Today's Communication/Plan
-
Urine test
f/w ID recommendations
order 2 units of RBCs, f/w hematology recommendations
Assessment / Plan
Assessment / Plan
Physical examination- -
General: not in distress, does not look in pain, looks comfortable.
HEENT: No deformities, Neck Supple. Pale and dry mucous membrane
lungs/Chest: Some rales (tachypneic)
Heart regular Rhythm, Normal S1/S2, Regular Rate (tachycardic)
Abdomen: Soft, Non Tender, Non Distended,.
Extremities: No cyanosis
Neurological: awake , Oriented x3. Answers questions appropriately and follows commands
Skin: No ecchymosis
Psych: calm, no agitation.
# Sickle cell pain crisis
Precipitated by stopping maintenance treatment with hydroxyurea and untreated INDIO/ hypoxia.
S/P high dose Dilaudid ATC and aggressive hydration
Stopped Standing dose of Dilaudid, changed to As needed only, add PRN Toradol.
PRN Tylenol PRN
DVT prophylaxis
d/w hematology, s/p one unit of blood 4/2, one unit 4/4, will give 2 units 4/5. Goal of HGB > 7.5
c/w Bowel regimen
Continue high care level in IMU
In History,
Patient uses Motrin and heating pad. Had to tramadol prescription in the past.
Patient was able to report that he was taking hydroxyurea but due to lapse in insurance and no follow-up with his pit steward.
# fever
Seems to happen again. Not uncommon to have fever while acute hemolysis from SC crisis.
WBC normalized.
There is clinical improvement over last 48 hours.
Negative blood cultures
CXR no active process.
No headaches.
Will send urine test
Asked ID to evaluate, help appreciated.
# Recurrent flare-up of herpes labialis
Will give Valtrex orally
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 Elevated liver enzyme. Elevated alkaline phosphatase. Elevated ferritin. Normal iron level
# hypoxia only due to combination of untreated INDIO/ Dilaudid
c/w O2 supplement
Stopped ATC Dilaudid
Does not want to use Cpap, ordered.
# Thrombocytosis, resolved
# Opioid induced encephalopathy
Resolved.
# High blood pressure
suspect due to untreated INDIO
Was elevated on admission
c/w BB and Diovan
# Urine drug screen positive for marijuana
# Sinus tachycardia/history of shortness of breath, chest pain.
Currently, no chest pain
Ordered echocardiogram and was unremarkable.
EKG consistent with sinus tachycardia
CT chest, no pulmonary embolism or infiltrate
Troponin on admission 0.014 then peaked at 0.055 then down to 0.033
Repeat chest x-ray showed no active disease. Continue oxygen supplementation
Monitored on telemetry
Started on Toprol & Diovan
Discussed with fruit grader. No need for OP follow up, can follow with PCP for HTN.
Total time spent to see the patient, examine the patient, review data and lab results, discuss treatment plan with patient, mother, nursing staff, consultants around 57 minutes. �
Anticipated Discharge: > 48 hours
Subjective/Interval History
-
Date of Service: August 10, 2024
Less pain in joints
No sob or chest pain
Objective Data
-
Labs:
Laboratory Results
08/10/24
05:30
WBC 9.5
Hgb 6.6 L*
Hct 19.3 L*
Plt Count 101 L D
Sodium 136
Potassium 3.5
Chloride 99
Carbon Dioxide 33 H
BUN 15
Creatinine 0.6 L
Glucose 108 H
Calcium 8.0 L
Total Bilirubin 2.8 H
AST 67 H
ALT 16
Alkaline Phosphatase 365 H
Vital Signs:
Vital Signs
Temp Pulse Resp BP Pulse Ox
98.7 F 124 18 100/72 92
08/10/24 09:09 08/10/24 09:09 08/10/24 09:09 08/10/24 09:09 08/10/24 09:09
I&O
08/09/24 08/10/24 08/11/24
06:59 06:59 06:59
Intake Total 3340 / 3340 3105 / 3105 0 / 0
Output Total 5700 / 5700 3300 / 3300
Balance -2360 / -2360 -195 / -195 0 / 0
--- NOTE | 2024-08-10 10:06 | CON.ID ---
Consultation
-
Date/Time Consultation Requested: 08/10/2024 0655
Date/Time Consultation Performed: 08/10/2024 0 945
Requesting Provider: Dr. Sue
Performing Provider: Dr. Styles
Reason for Consultation: Fever
Chief Complaint / Past History
History of Present Illness
Roberto Burkett is a 24-year-old man being evaluated at the request of Dr. Sue regarding fever. History is obtained from chart review, along with patient interview. The patient has a significant past medical history of sickle disease and beta
thalassemia and presented to the ER at [facility] on 08/06 after developing 2 days of progressive left shoulder pain left hip pain and right knee pain. He was initially evaluated in the ER and sent home, but he subsequently developed
increasing chest pain and presented back for further evaluation. He was found to have a marked leukocytosis and found to be in sickle crisis. He had reported that he had stopped his prior hydroxyurea secondary to insurance issues.
Since admission, his hospital course has been significant for receiving transfusions. He has had 2 fevers to 101 degrees, and Infectious Diseases is asked to comment upon further workup.
At present, he does not recall having the fevers, and has not had any rigors or noted chills. He notes at present his overall pain has decreased. No history of fevers prior to admission. He denies pharyngitis. He denies current cough or
congestion. He denies abdominal pain.
Past History
Additional Past Medical History:
Sickle cell disease
Beta thalassemia
Additional Past Surgical History:
Cholecystectomy
Splenectomy
T&A
Allergy History:
No Known Allergies Allergy (Verified 08/06/24 05:19)
Medications Reviewed: Yes
Current Antibiotics:
None
Social History
Tobacco: Non-Smoker
Alcohol: None
Drug: None
Personal: Single
Living: With Family
Employment: Employed
Family History
Family History: Not Pertinent
Review of Systems
Vital Signs
Temp Pulse Resp BP Pulse Ox
98.3 F 118 18 142/66 93
08/10/24 09:26 08/10/24 09:26 08/10/24 09:26 08/10/24 09:26 08/10/24 09:26
Physical Exam
Physical Exam
Constitutional: No Acute Distress, Comfortable and Non-toxic
Head: Normocephalic
Eyes: Pupils Equal, Pupils Round, No Conjunctival Hemorrhage and Sclera Anicteric
Oral: No Thrush and Other (Intra oral ulcer noted at corner of right lower lip)
Cardiovascular: Regular Rate and S1/S2; Negative S3/S4
Pulmonary: Clear; Negative Wheezes, Rales or Rhonchi
Gastrointestinal: Soft, Non Tender and Non Distended
Extremities: Edema (Trace)
Skin: Warm and Dry; Negative Rash or Jaundice
Neurological: Awake, Alert and Oriented
Psychological: Calm
.
Lab / Diagnostic Study Results
08/10/24 05:30
08/10/24 05:30
Abs Immat Gran (auto) Cancelled 08/06/24 12:12
Absolute Neuts (auto) Cancelled 08/06/24 12:12
Absolute Lymphs (auto) Cancelled 08/06/24 12:12
Absolute Monos (auto) Cancelled 08/06/24 12:12
Absolute Basos (auto) Cancelled 08/06/24 12:12
Total Counted 100 08/09/24 05:23
Immature Gran % Cancelled 08/06/24 12:12
Neutrophils % Cancelled 08/06/24 12:12
Lymphocytes % Cancelled 08/06/24 12:12
Monocytes % Cancelled 08/06/24 12:12
Eosinophils % Cancelled 08/06/24 12:12
Basophils % Cancelled 08/06/24 12:12
Abs Neuts (Manual) 9.3 10^3/uL (1.4-6.5) H 08/09/24 05:23
Segmented Neutrophils 81 % (42-75) H 08/09/24 05:23
Band Neutrophils 2 % (0-3) 08/09/24 05:23
Lymphocytes (Manual) 14 % (20-51) L 08/09/24 05:23
Eosinophils (Manual) Cancelled 08/06/24 12:12
Basophils (Manual) Cancelled 08/06/24 12:12
Microbiology Results
Micro:
08/07/24 12:27 Blood Culture - Preliminary
Blood/Venous No Growth in 48 hours- Final report to follow
08/07/24 11:03 Blood Culture - Preliminary
Blood/Venous No Growth in 48 hours- Final report to follow
08/07/24 00:09 MRSA Screen - Final
Nose No Methicillin Resistant Staphylococcus aureus isolated.
08/06/24 17:38 Influenza Types A & B ([facility]) - Final
Nasal Swab Negative for Influenza A & B, NAAT
Negative results must be combined with clinical observations
and patient history.
Nucleic Acid Amplification test (NAAT)performed on the
[employer] platform.
Imaging:
08/07/2024 CXR (portable): Lungs are clear. No pleural effusion or pneumothorax. Heart is mildly enlarged. Please see full dictation for additional detail. Film personally viewed.
08/06/2024 CT chest: Moderate cardiomegaly noted. Multiple bands of subsegmental atelectasis and scarring in both lungs. Mild left axillary lymphadenopathy. Severe bilateral gynecomastia. Please see full dictation for additional detail. Film
personally viewed.
Assessment / Plan
Fever
Sickle cell crisis
Leukocytosis; resolved
Thrombocytopenia
Elevated AST; improving
Oral ulcer; suspect aphthous ulcer rather than HSV
Hx sickle cell disease and beta thalassemia
Recommendations:
At present, patient appears clinically improved from admission. Fever may be secondary to ongoing sickle disease.
Blood cultures have been obtained, but remain negative at present.
Would continue to follow off of antibiotics at present.
Monitor for further fevers; if return, further workup may ensue.
Follow white count
Continue with supportive measures.
[2024-08-10] MEDS: VALTREX 2000 MG PO ×2 (11:16→19:22)
--- NOTE | 2024-08-10 11:36 | PTCARENOTE ---
Patient received 1st unit PRBCs; 2nd unit has not arrived from [facility] per blood bank.
[2024-08-10 12:18] LABS: Absolute Neutrophils -Man Diff 6.6 10^3/uL (1.4-6.5); Band Neutrophils 2 % (0-3); Lymphocytes 22 % (20-51); Monocytes 5 % (2-9); Segmented Neutrophils 68 % (42-75)
[2024-08-10 12:19] LABS: Atypical Lymphocytes 1 %; Metamyelocytes 1 % (-); Myelocytes 1 % (-); Total Cells Counted 100
[2024-08-10 12:21] LABS: Normal RBC Morphology No; Platelets Checked Yes
[2024-08-10 12:22] LABS: Anisocytosis 2+; Hypochromasia 2+; Microcytosis 2+
[2024-08-10 12:23] LABS: Target Cells 1+
[2024-08-10 12:25] LABS: Basophilic Stippling 1+; Poikilocytosis 2+
--- NOTE | 2024-08-10 15:18 | CM ---
Patient remains on O2 and seen at bedside with mother present. Patient plan is home with no needs. Watch for home O2 needs. Patient stated he is bored and just sleeping all day. Patient confirmed that they use the [facility].
Patient indicated that he was open to the residency clinic but thought it was to far from home. CM will provide information. CM will continue to follow for discharge planning needs.
Plan; home with VN/vs home with no needs watch for O2
[2024-08-10] MEDS: TYLENOL 650 MG PO ×2 (15:58→21:58)
--- NOTE | 2024-08-10 18:05 | PTCARENOTE ---
Patient completed 2nd unit PRBCs. Mom remains at bedside. T 100.5 prior to start of 2nd unit; tylenol given as ordered. Follow up T 98.[address] Sue aware via TT. Post t/f T 99.5.
[2024-08-10] MEDS: TORADOL 15 MG IV (19:22)
[2024-08-10] MEDS: SENOKOT-S 2 TABLET PO (22:25)
[2024-08-11] VITALS (19 sets, daily range): BP systolic 115–157; BP diastolic 57–76; PULSE 127; O2SAT 97; BMI 40.3
[2024-08-11] MEDS: HEPARIN 5000 UNITS SC ×4 (00:05→23:42)
[2024-08-11] MEDS: DILAUDID 1 MG IV ×5 (00:06→22:07)
[2024-08-11] MEDS: NSS 1000 IV (03:34)
[2024-08-11] MEDS: TORADOL 15 MG IV ×2 (03:35→21:28)
--- NOTE | 2024-08-11 04:11 | PTCARENOTE ---
Pt making wants known about using less Dilaudid. Pt able to lessen use of Dilaudid by using Toradol and Tylenol as ordered. Pt appearing in better spirits this evening and through out the night. Pt still having concerns about sore on lip, education
given to best of this RN ability. Assessment care and vitals as charted.
[2024-08-11] MEDS: MIRALAX 17 GRAMS PO (07:56)
[2024-08-11] MEDS: DIOVAN 160 MG PO (07:57)
[2024-08-11] MEDS: TOPROL XL 50 MG PO (07:57)
[2024-08-11] MEDS: ZOVIRAX OINTMENT 5% 1 APPLIC TOPICAL ×5 (07:57→23:42)
[2024-08-11] MEDS: FOLVITE 1 MG PO (07:57)
--- NOTE | 2024-08-11 08:26 | W.PN.ID1 ---
Date of Service
Date of Service: August 11, 2024
Today's Communication
Observe closely off abx.
Assessment / Plan
Fever
Sickle cell crisis
Anemia
Leukocytosis; resolved
Thrombocytopenia
Elevated AST; improving
Oral ulcer; suspect aphthous ulcer rather than HSV
Hx sickle cell disease and beta thalassemia
Recommendations:
At present, patient appears clinically stable. Suspect fever may be secondary to ongoing sickle crisis.
Blood cultures have been obtained, but remain negative at present.
Would continue to follow off of antibiotics at present.
Monitor for ongoing fevers.
Follow white count.
Continue with supportive measures.
Chief Complaint
-: Fever
Subjective / Review of Systems
Overall feels well. Low grade fever overnight
Vital Signs / Physical Exam
Vital Signs
Vital Signs
Temp Pulse Resp BP Pulse Ox
98.2 F 98 11 147/76 93
08/11/24 07:20 08/11/24 06:00 08/11/24 06:00 08/11/24 07:57 08/11/24 06:00
Physical Exam
Constitutional: No Acute Distress, Comfortable and Non-toxic
Pulmonary: Non Labored
Gastrointestinal: Non Distended
Neurological: Awake and Alert
Psychological: Calm
Objective Data
Lab Data
Lab Results
08/10/24 05:30
08/10/24 05:30
Estimated Creat Clear > 125 ml/min 08/10/24 05:30
Total Bilirubin 2.8 mg/dl (0.2-1.3) H 08/10/24 05:30
AST 67 U/L (17-59) H 08/10/24 05:30
ALT 16 U/L (0-50) 08/10/24 05:30
Alkaline Phosphatase 365 U/L (38-126) H 08/10/24 05:30
Most recent labs reviewed.
Micro Results:
08/07/24 12:27 Blood Culture - Preliminary
Blood/Venous No Growth in 72 hours- Final report to follow
08/07/24 11:03 Blood Culture - Preliminary
Blood/Venous No Growth in 72 hours- Final report to follow
08/07/24 00:09 MRSA Screen - Final
Nose No Methicillin Resistant Staphylococcus aureus isolated.
08/06/24 17:38 Influenza Types A & B ([facility]) - Final
Nasal Swab Negative for Influenza A & B, NAAT
Negative results must be combined with clinical observations
and patient history.
Nucleic Acid Amplification test (NAAT)performed on the
[employer] platform.
Imaging:
08/07/2024 CXR (portable): Lungs are clear. No pleural effusion or pneumothorax. Heart is mildly enlarged. Please see full dictation for additional detail. Film personally viewed.
08/06/2024 CT chest: Moderate cardiomegaly noted. Multiple bands of subsegmental atelectasis and scarring in both lungs. Mild left axillary lymphadenopathy. Severe bilateral gynecomastia. Please see full dictation for additional detail. Film
personally viewed.
--- NOTE | 2024-08-11 08:29 | W.PN.HOSP.TC ---
Today's Communication/Plan
-
One unit of RBCs
Starting hydroxyurea
PT/OT
No need for more IVF with good oral intake
Avoid Dilaudid as possible.
Assessment / Plan
Assessment / Plan
Physical examination- -
General: not in distress, does not look in pain, looks comfortable.
HEENT: No deformities, Neck Supple. Pale and dry mucous membrane
lungs/Chest: better ir, no wheezes or rales.
Heart regular Rhythm, Normal S1/S2, Regular Rate (tachycardic)
Abdomen: Soft, Non Tender, Non Distended,.
Extremities: No cyanosis
Neurological: awake , Oriented x3. Answers questions appropriately and follows commands
Skin: No ecchymosis
Psych: calm, no agitation.
# Sickle cell pain crisis
Precipitated by stopping maintenance treatment with hydroxyurea and untreated INDIO/ hypoxia.
S/P high dose Dilaudid ATC and aggressive hydration
Stopped Standing dose of Dilaudid, changed to As needed only, add PRN Toradol.
PRN Tylenol PRN
DVT prophylaxis
d/w hematology, start on Hydroxyurea. S/p one unit of blood 4/2, one unit 4/4, 2 units 4/5. one unit 4/6. Goal of HGB > 7.5 . So far total of 5 units.
c/w Bowel regimen
Continue high care level in IMU
In History,
Patient uses Motrin and heating pad. Had to tramadol prescription in the past.
Patient was able to report that he was taking hydroxyurea 1000 mg twice a day but due to lapse in insurance and no follow-up with his counseling services director.
# fever, reactive
Seems to happen again. Not uncommon to have fever while acute hemolysis from SC crisis.
WBC normalized.
There is clinical improvement over last 48 hours.
Negative blood cultures
CXR no active process.
No headaches.
Appreciate ID help, keep off ABx.
Asked ID to evaluate, help appreciated.
# Recurrent flare-up of herpes labialis
Will give Valtrex orally
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 Elevated liver enzyme. Elevated alkaline phosphatase. Elevated ferritin. Normal iron level
# hypoxia only due to combination of untreated severe INDIO/ Dilaudid
c/w O2 supplement
Stopped ATC Dilaudid
Patient was counseled to use CPAP which he had since teenager, he verbalized understanding.
# Thrombocytosis, resolved
# Opioid induced encephalopathy
Resolved. AAOX3.
# High blood pressure
suspect due to untreated INDIO
Was elevated on admission
c/w BB and Diovan
# Urine drug screen positive for marijuana
# Sinus tachycardia/history of shortness of breath, chest pain.
Currently, no chest pain
Ordered echocardiogram and was unremarkable.
EKG consistent with sinus tachycardia
CT chest, no pulmonary embolism or infiltrate
Troponin on admission 0.014 then peaked at 0.055 then down to 0.033
Repeat chest x-ray showed no active disease. Continue oxygen supplementation
Monitored on telemetry
Started on Toprol & Diovan
Discussed with transfer coordinator. No need for OP follow up, can follow with PCP for HTN.
Total time spent to see the patient, examine the patient, review data and lab results, discuss treatment plan with patient, mother, nursing staff, consultants around 57 minutes. �
Anticipated Discharge: > 48 hours
Subjective/Interval History
-
Date of Service: August 11, 2024
he is feeling better
less pain in right hip and right knee, able to stand up now
Objective Data
-
Vital Signs:
Vital Signs
Temp Pulse Resp BP Pulse Ox
98.2 F 98 11 147/76 93
08/11/24 07:20 08/11/24 06:00 08/11/24 06:00 08/11/24 07:57 08/11/24 06:00
I&O
08/10/24 08/11/24 08/12/24
06:59 06:59 06:59
Intake Total 3105 / 3105 2960 / 2960
Output Total 3300 / 3300 2049
Balance -195 / -195 910 / 910
[2024-08-11 10:05] LABS: Hematocrit 20.8 % (39.0-52.0); Hemoglobin 7.1 g/dL (13.0-18.0); Mean Corp Hgb Conc. 34.1 g/dL (33.0-37.0); Mean Corpuscular Hgb 22.8 pg (27.0-31.0); Mean Corpuscular Volume 66.9 fL (80.0-94.0); Platelet Count 95 10^3/uL (130-400); Red Blood Cell Count 3.11 10^6/uL (4.70-6.10); Red Cell Dist. Width 30.6 % (11.5-14.5); White Blood Cell Count 7.6 10^3/uL (4.8-10.8)
--- NOTE | 2024-08-11 11:00 | PTCARENOTE ---
Addendum entered by Melina Lopez RN 08/11/24 11:03:
Per Dr Sue, ok to d/c IVF; no renew order in computer.
Original Note:
Assumed care of patient at beginning of this shift from previous RN; mom at bedside. POx 92-94% on 2L n/c. H&H 7.1/20.8. Dr Sue made aware when on unit to see patient; 1 unit PRBC ordered. See worklist for full assessment and vital signs.
--- NOTE | 2024-08-11 11:11 | PTCARENOTE ---
Notified by Blood [facility] that patient will need another T&S before blood can be released as it's past the 3 day limit. Phlebotomy paged as they needed to draw blood and order for transfusion was entered after previous blood draw.
--- NOTE | 2024-08-11 11:44 | W.PN.ONC ---
Today's Communication / Plan
-
Transfuse to keep <7.5 additional units today
Folic Acid supplementation.
Previously on hydroxyurea 1000 mg twice daily, will initiate hydroxyurea at reduced dose 500 mg twice daily
Pain control, IVF, supplemental o2
dvt ppx
Severe sleep apnea likely exacerbating early pulmonary hypertension and chronic tachycardia
Impression
Impression
24 year old male a/w vaso-occlusive crisis
Acute on Chronic Anemia
fever, leukocytosis -influenza negative, Bcx NTD, CTA/CXR no PNA
hypoxia - CTA no PE
mild left axillary lymphadenopathy 1.3 x 1.0cm
UDS opiates & marijuana
cardiomegaly, LVEF 58%
Plan
Plan
Information left with mother for patient to follow up with [facility] until he can get insurance.
Subjective/Objective
Subjective/Objective
Patient notices no progression in dyspnea. Remains tachycardic.
Vital Signs:
Vital Signs
Temp Pulse Resp BP Pulse Ox
98.2 F 115 24 150/76 94
08/11/24 07:20 08/11/24 10:00 08/11/24 10:00 08/11/24 08:00 08/11/24 10:24
physical exam: Unchanged
Lab Results:
Laboratory Data
WBC 7.6 10^3/uL (4.8-10.8) 08/11/24 09:51
Hgb 7.1 g/dL (13.0-18.0) L 08/11/24 09:51
Plt Count 95 10^3/uL (130-400) L 08/11/24 09:51
eGFR > 60.00 08/10/24 05:30
--- NOTE | 2024-08-11 12:13 | PTCARENOTE ---
Hydroxyurea was ordered as a stat med then changed to bid, starting this evening at 20:00. This nurse confirmed with pharmacy that now dose was cancelled.
[2024-08-11] MEDS: SENOKOT-S 2 TABLET PO (21:28)
[2024-08-11] MEDS: HYDREA 500 MG PO (21:28)
[2024-08-12] VITALS (13 sets, daily range): BP systolic 115–152; BP diastolic 57–88; PULSE 116; O2SAT 97; BMI 40.3
--- NOTE | 2024-08-12 00:10 | PTCARENOTE ---
Assumed care from Day RN. Pt continues to have pain see MAR for media planner. Pt does appear to be in better spirits than he has the past few days. Assessment care and vitals as charted.
[2024-08-12] MEDS: DILAUDID 1 MG IV ×5 (04:19→20:05)
[2024-08-12 06:17] LABS: Blood Urea Nitrogen 11 mg/dl (9-20); Calcium 8.5 mg/dl (8.4-10.2); Carbon Dioxide 29 mmol/L (22-30); Chloride 101 mmol/L (98-107); Estimated Creatinine Clearance > 125 ml/min; Glucose 177 mg/dl (70-99); Potassium 3.3 mmol/L (3.5-5.1); Sodium 138 mmol/L (135-145); eGFR > 60.00
[2024-08-12 06:46] LABS: Hematocrit 23.3 % (39.0-52.0); Mean Corp Hgb Conc. 34.3 g/dL (33.0-37.0); Platelet Count 102 10^3/uL (130-400); Red Blood Cell Count 3.33 10^6/uL (4.70-6.10); Red Cell Dist. Width 31.6 % (11.5-14.5); White Blood Cell Count 7.9 10^3/uL (4.8-10.8)
[2024-08-12] MEDS: FOLVITE 1 MG PO (08:36)
[2024-08-12] MEDS: DIOVAN 160 MG PO (08:36)
[2024-08-12] MEDS: MIRALAX 17 GRAMS PO (08:36)
[2024-08-12] MEDS: TOPROL XL 50 MG PO (08:37)
[2024-08-12] MEDS: HEPARIN 5000 UNITS SC ×3 (08:37→23:00)
[2024-08-12] MEDS: HYDREA 500 MG PO ×2 (08:37→20:04)
[2024-08-12] MEDS: ZOVIRAX OINTMENT 5% 1 APPLIC TOPICAL ×5 (08:38→20:04)
--- NOTE | 2024-08-12 12:47 | W.PN.HOSP.TC ---
Today's Communication/Plan
-
Monitor vital signs see plan
Vaso-occlusive crisis, continue with pain meds
Replete potassium
cw hydroxyurea
Assessment / Plan
Assessment / Plan
Physical examination- -
General: not in distress, does not look in pain, looks comfortable.
HEENT: No deformities, Neck Supple. Pale and dry mucous membrane
lungs/Chest:CTA, no wheezes
Heart regular Rhythm, Normal S1/S2, Regular Rate (tachycardic)
Abdomen: Soft, Non Tender, Non Distended,.
Neurological: awake , Oriented x3. Answers questions appropriately and follows commands
Psych: calm, no agitation.
# Sickle cell pain crisis
Precipitated by stopping maintenance treatment with hydroxyurea and untreated INDIO/ hypoxia.
S/P high dose Dilaudid ATC and aggressive hydration
Stopped Standing dose of Dilaudid, changed to As needed only, add PRN Toradol.
PRN Tylenol PRN
DVT prophylaxis
d/w hematology, start on Hydroxyurea. S/p one unit of blood 4/2, one unit 4/4, 2 units 4/5. one unit 4/6. Goal of HGB > 7.5 . So far total of 5 units.
c/w Bowel regimen
Continue high care level in IMU
In History,
Patient uses Motrin and heating pad. Had to tramadol prescription in the past.
Patient was able to report that he was taking hydroxyurea 1000 mg twice a day but due to lapse in insurance and no follow-up with his insurance adviser.
# fever, reactive
Seems to happen again. Not uncommon to have fever while acute hemolysis from SC crisis.
WBC normalized.
There is clinical improvement over last 48 hours.
Negative blood cultures
CXR no active process.
No headaches.
Appreciate ID help, keep off ABx.
Asked ID to evaluate, help appreciated.
# Recurrent flare-up of herpes labialis
Will give Valtrex orally
Mild hypokalemia
Replete
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 Elevated liver enzyme. Elevated alkaline phosphatase. Elevated ferritin. Normal iron level
# hypoxia only due to combination of untreated severe INDIO/ Dilaudid
c/w O2 supplement;wean o2 as tolerated
Stopped ATC Dilaudid
Patient was counseled to use CPAP which he had since teenager, he verbalized understanding.
# Thrombocytosis, resolved
# Opioid induced encephalopathy
Resolved. AAOX3.
# High blood pressure
suspect due to untreated INDIO
Was elevated on admission
c/w BB and Diovan
# Urine drug screen positive for marijuana
# Sinus tachycardia/history of shortness of breath, chest pain.
Currently, no chest pain
Ordered echocardiogram and was unremarkable.
EKG consistent with sinus tachycardia
CT chest, no pulmonary embolism or infiltrate
Troponin on admission 0.014 then peaked at 0.055 then down to 0.033
Repeat chest x-ray showed no active disease. Continue oxygen supplementation
Monitored on telemetry
Started on Toprol & Diovan
Discussed with instrumentation engineering technician. No need for OP follow up, can follow with PCP for HTN.
Total time spent to see the patient, examine the patient, review data and lab results, discuss treatment plan with patient, mother, nursing staff, consultants around 53 minutes. �
Anticipated Discharge: > 48 hours
Subjective/Interval History
-
Date of Service: August 12, 2024
denies nausea
Objective Data
-
Labs:
Laboratory Results
08/12/24
05:45
WBC 7.9
Hgb 8.0 L
Hct 23.3 L
Plt Count 102 L
Sodium 138
Potassium 3.3 L
Chloride 101
Carbon Dioxide 29
BUN 11
Creatinine 0.6 L
Glucose 177 H
Calcium 8.5
Vital Signs:
Vital Signs
Temp Pulse Resp BP Pulse Ox
97.6 F 100 28 115/66 96
08/12/24 07:29 08/12/24 08:00 08/12/24 08:00 08/12/24 08:00 08/12/24 08:59
I&O
08/11/24 08/12/24 08/13/24
06:59 06:59 06:59
Intake Total 3460 / 3460 1780 / 1780 480 / 480
Output Total 2049 / 2049 2550 / 2550 875 / 875
Balance 1410 / 1410 -770 / -770 -395 / -395
--- NOTE | 2024-08-12 13:14 | W.PN.ID1 ---
Date of Service
Date of Service: August 12, 2024
Today's Communication
Observe off antibiotics.
Assessment / Plan
Fever
Sickle cell crisis
Anemia
Leukocytosis; resolved
Thrombocytopenia
Elevated AST; improving
Oral ulcer; suspect aphthous ulcer rather than HSV
Hx sickle cell disease and beta thalassemia
Recommendations:
Blood cultures remain negative. Fevers resolved.
Continue to follow off of antibiotics at present.
Monitor for ongoing fevers.
Follow white count.
Continue with supportive measures.
Chief Complaint
-: Fever
Subjective / Review of Systems
Review of Systems: No Fever and No Chills
Vital Signs / Physical Exam
Vital Signs
Vital Signs
Temp Pulse Resp BP Pulse Ox
97.6 F 100 28 115/66 96
08/12/24 07:29 08/12/24 08:00 08/12/24 08:00 08/12/24 08:00 08/12/24 08:59
Physical Exam
Constitutional: No Acute Distress, Comfortable and Non-toxic
Pulmonary: Non Labored
Gastrointestinal: Non Distended
Neurological: Awake and Alert
Psychological: Calm
Objective Data
Lab Data
Lab Results
08/12/24 05:45
08/12/24 05:45
Estimated Creat Clear > 125 ml/min 08/12/24 05:45
Total Bilirubin 2.8 mg/dl (0.2-1.3) H 08/10/24 05:30
AST 67 U/L (17-59) H 08/10/24 05:30
ALT 16 U/L (0-50) 08/10/24 05:30
Alkaline Phosphatase 365 U/L (38-126) H 08/10/24 05:30
Most recent labs reviewed.
Micro Results:
08/07/24 12:27 Blood Culture - Final
Blood/Venous No Growth - Final Report
08/07/24 11:03 Blood Culture - Final
Blood/Venous No Growth - Final Report
08/07/24 00:09 MRSA Screen - Final
Nose No Methicillin Resistant Staphylococcus aureus isolated.
08/06/24 17:38 Influenza Types A & B ([facility]) - Final
Nasal Swab Negative for Influenza A & B, NAAT
Negative results must be combined with clinical observations
and patient history.
Nucleic Acid Amplification test (NAAT)performed on the
[employer] platform.
Imaging:
08/07/2024 CXR (portable): Lungs are clear. No pleural effusion or pneumothorax. Heart is mildly enlarged. Please see full dictation for additional detail. Film personally viewed.
08/06/2024 CT chest: Moderate cardiomegaly noted. Multiple bands of subsegmental atelectasis and scarring in both lungs. Mild left axillary lymphadenopathy. Severe bilateral gynecomastia. Please see full dictation for additional detail. Film
personally viewed.
[2024-08-12] MEDS: KCL 20 MEQ PO (13:15)
--- NOTE | 2024-08-12 13:54 | PN.CDI ---
CDI
- -
CDI:
Physician Documentation Request
Admit Date: 08/06/24 16:20
Dear Doctor Tramaine,
Please review the following and provide your response in the progress notes.
Clinical Indicators:
H+P, 08/06
#Cardiac: S1/S2 and Tachycardia (Sinus 140 bpm secondary to pain);
#Acute pain crisis secondary to sickle cell disease
#Hx sickle cell anemia
#WBC 25.2 at noon today> 17 at 5:39 this a.m.
Note, 08/07
#Elevated total bilirubin
PN, 08/12
# Sickle cell pain crisis
# fever, reactive
#Appreciate ID help, keep off ABx.
Selected Entries
08/08/24
23:30 08/09/24
00:00
Temp 101.6 F H
Pulse 131
Resp Rate 25
Laboratory Tests
08/06/24 08/07/24 08/08/24
12:12 04:47 04:25
Total Bilirubin 2.6 H 3.1 H 5.7 H D
AST 175 H 291 H
08/09/24 08/10/24
05:23 05:30
Total Bilirubin 3.5 H 2.8 H
AST 136 H 67 H
Please clarify which most accurately describes the patient:
SIRS due to non infectious source
SIRS due to non infectious source with organ dysfunction(please specify)
Other (please specify)
SIRS
2 or more SIRS criteria which include:
Fever > 100.4 degrees F or hypothermia < 96.8 degrees F
Leukocytosis - WBC > 12,000 or leukopenia, WBC < 4,000 or > 10% bands
Tachycardia - > 90 beats per minute
Tachypnea - RR > 20 breaths per minute or PaCO2 < 32 mmHg
Source: Merck Manual 2013
Indicate if there is associated organ dysfunction, such as renal or respiratory failure
SIRS due to a non-infectious source
Indicate the known or suspected etiology
Indicate if there is associated organ dysfunction, such as renal or respiratory failure
Use of terms such as suspected, likely, concern for, or probable (associated with a specific diagnosis that is being evaluated, monitored, or treated as if it exists) are acceptable and can be coded in the inpatient setting, when documented at the
time of discharge.
Thank you,
Lawanda Keys RN BSN CCDS
CDI Specialist
Please contact via tiger text
Please use your independent medical judgment in providing your response.
--- NOTE | 2024-08-12 15:34 | W.PN.ONC ---
Today's Communication / Plan
-
He seems to be slowly improving. Would use a lower cutoff, perhaps 7 g, for transfusion threshold, as he has laboratory evidence of severe iron overload with a ferritin of greater than 100,000. He will be on hydroxyurea on discharge.
Impression
Impression
24 year old male a/w vaso-occlusive crisis
Acute on Chronic Anemia
fever, leukocytosis -influenza negative, Bcx NTD, CTA/CXR no PNA
hypoxia - CTA no PE
mild left axillary lymphadenopathy 1.3 x 1.0cm
UDS opiates & marijuana
cardiomegaly, LVEF 58%
Plan
Plan
Information left with mother for patient to follow up with [facility] until he can get insurance.
Subjective/Objective
Subjective/Objective
He says he is feeling a little better. He still has bilateral hip pain. Examination is unchanged.
Vital Signs:
Vital Signs
Temp Pulse Resp BP Pulse Ox
99.0 F 115 19 127/57 93
08/12/24 11:15 08/12/24 14:00 08/12/24 14:00 08/12/24 14:00 08/12/24 14:00
Lab Results:
Laboratory Data
WBC 7.9 10^3/uL (4.8-10.8) 08/12/24 05:45
Hgb 8.0 g/dL (13.0-18.0) L 08/12/24 05:45
Plt Count 102 10^3/uL (130-400) L 08/12/24 05:45
eGFR > 60.00 08/12/24 05:45
--- NOTE | 2024-08-12 18:02 | CM ---
Patient with Hx sickle cell disease with Dx vaso-occlusive crisis/sickle cell crisis, anemia. O2 2L. Sinus tachycardia. Receiving IV Dilaudid prn. PT/OT recommends acute rehab.
Spoke with DAMIAN Gibson; patient will likely be eligible for MA.
Phone message to [facility] Liaison; please review this patient and let CM know if he would likely be a good acute rehab candidate.
Plan follow up with [facility].
[2024-08-12] MEDS: SENOKOT-S 2 TABLET PO (20:04)
--- NOTE | 2024-08-12 23:41 | PTCARENOTE ---
assumed care of patient. pt is AAOx3, able to make needs known. VSS. on RA 95%, 2L placed HS for hx of sleep apnea. pt states pain is a 7/10 at start of shift to bilateral legs. PRN dilaudid given per MAR. pt feeling much better than when he first
came in. care ongoing.
[2024-08-13] VITALS (12 sets, daily range): BP systolic 125–187; BP diastolic 63–98; PULSE 112; O2SAT 95
[2024-08-13] MEDS: DILAUDID 1 MG IV ×5 (00:15→19:19)
[2024-08-13 05:56] LABS: Blood Urea Nitrogen 12 mg/dl (9-20); Calcium 8.8 mg/dl (8.4-10.2); Carbon Dioxide 31 mmol/L (22-30); Chloride 101 mmol/L (98-107); Estimated Creatinine Clearance > 125 ml/min; Glucose 110 mg/dl (70-99); Potassium 4.2 mmol/L (3.5-5.1); Sodium 137 mmol/L (135-145); eGFR > 60.00
[2024-08-13 06:11] LABS: Hematocrit 24.5 % (39.0-52.0); Hemoglobin 8.1 g/dL (13.0-18.0); Mean Corp Hgb Conc. 33.1 g/dL (33.0-37.0); Mean Corpuscular Hgb 23.5 pg (27.0-31.0); Mean Platelet Volume 9.3 fL (7.4-10.4); Platelet Count 146 10^3/uL (130-400); Red Blood Cell Count 3.45 10^6/uL (4.70-6.10); Red Cell Dist. Width 32.2 % (11.5-14.5); White Blood Cell Count 8.9 10^3/uL (4.8-10.8)
[2024-08-13 08:00] LABS: Absolute Neutrophils -Man Diff 6.2 10^3/uL (1.4-6.5); Anisocytosis 2+; Band Neutrophils 0 % (0-3); Hypochromasia 2+; Lymphocytes 24 % (20-51); Microcytosis 2+; Monocytes 4 % (2-9); Myelocytes 2 % (-); Normal RBC Morphology No; Nucleated Red Blood Cells 180 (-); Platelets Checked Yes; Segmented Neutrophils 70 % (42-75); Target Cells 1+; Total Cells Counted 100
[2024-08-13] MEDS: MIRALAX 17 GRAMS PO (08:31)
[2024-08-13] MEDS: HEPARIN 5000 UNITS SC ×3 (08:31→23:01)
[2024-08-13] MEDS: TOPROL XL 50 MG PO (08:31)
[2024-08-13] MEDS: DIOVAN 160 MG PO (08:32)
[2024-08-13] MEDS: FOLVITE 1 MG PO (08:32)
[2024-08-13] MEDS: HYDREA 500 MG PO ×2 (08:32→19:19)
[2024-08-13] MEDS: ZOVIRAX OINTMENT 5% 1 APPLIC TOPICAL ×4 (08:37→21:28)
--- NOTE | 2024-08-13 09:36 | W.PN.ONC2 ---
Today's Communication / Plan
-
.
Impression
Impression
24 year old male a/w vaso-occlusive crisis
Acute on Chronic Anemia, s/p 5U PRBC during hospitalization, last 08/11 -Hgb stable 8.1g/dL
fever, leukocytosis -resolved
hypoxia - CTA no PE
mild left axillary lymphadenopathy 1.3 x 1.0cm
UDS opiates & marijuana
cardiomegaly, LVEF 58%
oral ulcer -aphthous ulcer vs HSV
Plan
Plan
Off abx, ID following
continue folic acid 1mg daily at discharge
hydrea 500mg BID started 08/11 and should be continued at discharge
transfuse Hgb <7.5
Dvt ppx
continue supportive care with adequate hydration, supplemental O2, and pain management
Outpatient follow up with [facility] until he can get insurance.
Subjective/Objective
Subjective
appears comfortable
Hgb stable 8.1g/dL
improved supplemental O2 requirements to 2L NC
using hydromorphone vaso-occlusive pain -2mg/24hourss
Vital Signs:
Vital Signs
Temp Pulse Resp BP Pulse Ox
98.1 F 94 26 138/68 96
08/13/24 07:28 08/13/24 08:32 08/13/24 06:00 08/13/24 08:32 08/13/24 06:00
Lab Results:
Laboratory Data
WBC 8.9 10^3/uL (4.8-10.8) 08/13/24 05:15
Hgb 8.1 g/dL (13.0-18.0) L 08/13/24 05:15
Plt Count 146 10^3/uL (130-400) D 08/13/24 05:15
eGFR > 60.00 08/13/24 05:15
--- NOTE | 2024-08-13 12:15 | CM ---
Patient with Hx sickle cell disease with Dx vaso-occlusive crisis/sickle cell crisis, anemia. Room air. Receiving IV Dilaudid prn. PT 08/11 & OT 08/12 recommend acute rehab.
Met with patient and discussed his current functional mobility. Patient stated that he does not want to go to acute rehab - he intends to go home. His mom works during the day however his grand-mother lives across the street and he can contact her
as needed. Roberto is asking for more PT/OT here and he will need stair training before going home for the full flight of stairs to get into the house. Patient is aware that he is likely to be approved for Medicaid, as per [employer] , however as his
Medicaid is pending he will not be able to get Home Health or outpatient PT covered at discharge. He feels if he gets more therapy here he will be good to go when he is discharged. Patient plans to follow up at [facility] for now, and
once his MA is in place he will be seeing a PCP that his family goes to.
Message sent to the team re; the above d/c plan, including Dr Redd, Kemar PT, Marilyn OT, nurse Ana, & Luis at [facility].
Plan home when medically ready.
--- NOTE | 2024-08-13 12:57 | W.PN.HOSP.TC ---
Today's Communication/Plan
-
monitor vitals
see plan
wean o2 as tolerated
need PO pain control; start oxy
dilaudid prn
monitor hgb
Continue with hydroxyurea
Does not want rehab
Assessment / Plan
Assessment / Plan
Physical examination- -
General: not in distress, does not look in pain, looks comfortable.
HEENT: No deformities, Neck Supple. Pale and dry mucous membrane
lungs/Chest:CTA, no wheezes
Heart regular Rhythm, Normal S1/S2, Regular Rate (tachycardic)
Abdomen: Soft, Non Tender, Non Distended,.
Neurological: awake , Oriented x3. Answers questions appropriately and follows commands
Psych: calm, no agitation.
# Sickle cell pain crisis
Precipitated by stopping maintenance treatment with hydroxyurea and untreated INDIO/ hypoxia.
S/P high dose Dilaudid ATC and aggressive hydration
Stopped Standing dose of Dilaudid, changed to As needed only, add PRN Toradol.
PRN Tylenol PRN
DVT prophylaxis
d/w hematology, start on Hydroxyurea. S/p one unit of blood 4/2, one unit 4/4, 2 units 4/5. one unit 4/6. Goal of HGB > 7 . So far total of 5 units.
c/w Bowel regimen
Continue high care level in IMU
In History,
Patient uses Motrin and heating pad. Had to tramadol prescription in the past.
Patient was able to report that he was taking hydroxyurea 1000 mg twice a day but due to lapse in insurance and no follow-up with his vice president of software development.
# fever, reactive
SIRS due to a non-infectious source
Seems to happen again. Not uncommon to have fever while acute hemolysis from SC crisis.
WBC normalized.
There is clinical improvement over last 48 hours.
Negative blood cultures
CXR no active process.
No headaches.
Appreciate ID help, keep off ABx.
Asked ID to evaluate, help appreciated.
# Recurrent flare-up of herpes labialis
Will give Valtrex orally
Mild hypokalemia
Replete
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 Elevated liver enzyme. Elevated alkaline phosphatase. Elevated ferritin. Normal iron level
# hypoxia only due to combination of untreated severe INDIO/ Dilaudid
c/w O2 supplement;wean o2 as tolerated
Stopped ATC Dilaudid
Patient was counseled to use CPAP which he had since teenager, he verbalized understanding.
# Thrombocytosis, resolved
# Opioid induced encephalopathy
Resolved. AAOX3.
# High blood pressure
suspect due to untreated INDIO
Was elevated on admission
c/w BB and Diovan
# Urine drug screen positive for marijuana
# Sinus tachycardia/history of shortness of breath, chest pain.
Currently, no chest pain
Ordered echocardiogram and was unremarkable.
EKG consistent with sinus tachycardia
CT chest, no pulmonary embolism or infiltrate
Troponin on admission 0.014 then peaked at 0.055 then down to 0.033
Repeat chest x-ray showed no active disease. Continue oxygen supplementation
Monitored on telemetry
Started on Toprol & Diovan
Discussed with first officer. No need for OP follow up, can follow with PCP for HTN.
Total time spent to see the patient, examine the patient, review data and lab results, discuss treatment plan with patient, mother, nursing staff, consultants around 52 minutes. �
Anticipated Discharge: 24 - 48 hours
Subjective/Interval History
-
Date of Service: August 13, 2024
has pain
Objective Data
-
Labs:
Laboratory Results
08/13/24
05:15
WBC 8.9
Hgb 8.1 L
Hct 24.5 L
Plt Count 146 D
Sodium 137
Potassium 4.2 D
Chloride 101
Carbon Dioxide 31 H
BUN 12
Creatinine 0.6 L
Glucose 110 H
Calcium 8.8
Vital Signs:
Vital Signs
Temp Pulse Resp BP Pulse Ox
98.2 F 94 26 138/68 96
08/13/24 11:30 08/13/24 08:32 08/13/24 06:00 08/13/24 08:32 08/13/24 06:00
I&O
08/12/24 08/13/24 08/14/24
06:59 06:59 06:59
Intake Total 1780 / 1780 480 / 480
Output Total 2550 / 2550 4300 / 4300 2200 / 2200
Balance -770 / -770 -3820 / -3820 -2200 / -2200
--- NOTE | 2024-08-13 12:59 | W.PN.ID1 ---
Date of Service
Date of Service: August 13, 2024
Today's Communication
Observe off antibiotics.
Assessment / Plan
Fever
Sickle cell crisis
Anemia
Leukocytosis; resolved
Thrombocytopenia
Elevated AST; improving
Oral ulcer; suspect aphthous ulcer rather than HSV
Hx sickle cell disease and beta thalassemia
Recommendations:
Blood cultures remain negative. Fevers resolved.
Continue to follow off of antibiotics.
Monitor for ongoing fevers.
Follow white count.
Continue with supportive measures.
Chief Complaint
-: Fever and Other (Sickle crisis)
Subjective / Review of Systems
Review of Systems: No Fever and No Chills
Vital Signs / Physical Exam
Vital Signs
Vital Signs
Temp Pulse Resp BP Pulse Ox
98.2 F 94 26 138/68 96
08/13/24 11:30 08/13/24 08:32 08/13/24 06:00 08/13/24 08:32 08/13/24 06:00
Physical Exam
Constitutional: No Acute Distress, Comfortable and Non-toxic
Pulmonary: Non Labored
Gastrointestinal: Non Distended
Skin: Negative Rash or Jaundice
Neurological: Awake and Alert
Psychological: Calm
Objective Data
Lab Data
Lab Results
08/13/24 05:15
08/13/24 05:15
Estimated Creat Clear > 125 ml/min 08/13/24 05:15
Total Bilirubin 2.8 mg/dl (0.2-1.3) H 08/10/24 05:30
AST 67 U/L (17-59) H 08/10/24 05:30
ALT 16 U/L (0-50) 08/10/24 05:30
Alkaline Phosphatase 365 U/L (38-126) H 08/10/24 05:30
Most recent labs reviewed.
Micro Results:
08/07/24 12:27 Blood Culture - Final
Blood/Venous No Growth - Final Report
08/07/24 11:03 Blood Culture - Final
Blood/Venous No Growth - Final Report
08/07/24 00:09 MRSA Screen - Final
Nose No Methicillin Resistant Staphylococcus aureus isolated.
08/06/24 17:38 Influenza Types A & B ([facility]) - Final
Nasal Swab Negative for Influenza A & B, NAAT
Negative results must be combined with clinical observations
and patient history.
Nucleic Acid Amplification test (NAAT)performed on the
[employer] platform.
Imaging:
08/07/2024 CXR (portable): Lungs are clear. No pleural effusion or pneumothorax. Heart is mildly enlarged. Please see full dictation for additional detail. Film personally viewed.
08/06/2024 CT chest: Moderate cardiomegaly noted. Multiple bands of subsegmental atelectasis and scarring in both lungs. Mild left axillary lymphadenopathy. Severe bilateral gynecomastia. Please see full dictation for additional detail. Film
personally viewed.
[2024-08-13] MEDS: ROXICODONE 5 MG PO ×2 (14:58→21:28)
[2024-08-13] MEDS: ZOVIRAX OINTMENT 5% TOPICAL (18:13)
[2024-08-13] MEDS: SENOKOT-S 2 TABLET PO (19:19)
[2024-08-14] VITALS (14 sets, daily range): BP systolic 109–143; BP diastolic 60–82
[2024-08-14] MEDS: DILAUDID 1 MG IV ×5 (00:22→23:59)
--- NOTE | 2024-08-14 01:09 | PTCARENOTE ---
pt up to the bathroom to have a BM. HR did increase to 160s with activity. once back to bed HR slowly went back down to 110s-120s. care ongoing.
[2024-08-14 05:14] LABS: % Basophils 0.3 % (0-2); % Eosinophils 2.5 % (0-6); % Immature Granulocytes 2.7 % (0-0.5); % Lymphocytes 23.9 % (20.5-51.1); % Neutrophils 66.6 % (42.2-75.2); Absolute Eosinophils 0.2 10^3/uL (0-0.7); Absolute Immature Granulocytes 0.3 10^3/uL (0-0.05); Absolute Lymphocytes 2.2 10^3/uL (1.2-3.4); Absolute Monocytes 0.4 10^3/uL (0.1-0.6); Absolute Neutrophils 6.1 10^3/uL (1.4-6.5); Hematocrit 24.9 % (39.0-52.0); Hemoglobin 8.1 g/dL (13.0-18.0); Mean Corp Hgb Conc. 32.5 g/dL (33.0-37.0); Mean Corpuscular Hgb 23.2 pg (27.0-31.0); Mean Corpuscular Volume 71.3 fL (80.0-94.0); Mean Platelet Volume 9.4 fL (7.4-10.4); Nucleated Red Blood Cells % 91.4 % (-); Platelet Count 241 10^3/uL (130-400); Red Blood Cell Count 3.49 10^6/uL (4.70-6.10); Red Cell Dist. Width 32.9 % (11.5-14.5); White Blood Cell Count 9.1 10^3/uL (4.8-10.8)
--- NOTE | 2024-08-14 05:23 | PTCARENOTE ---
pt has needed PRN dilaudid 3x during the night. scheduled marco a has not been controlling his pain enough. asking for regime to looked at. will relay to dayshift.
[2024-08-14 05:34] LABS: Blood Urea Nitrogen 10 mg/dl (9-20); Carbon Dioxide 29 mmol/L (22-30); Chloride 100 mmol/L (98-107); Estimated Creatinine Clearance > 125 ml/min; Glucose 119 mg/dl (70-99); Potassium 4.3 mmol/L (3.5-5.1); Sodium 138 mmol/L (135-145); eGFR > 60.00
[2024-08-14] MEDS: ROXICODONE 5 MG PO ×3 (06:17→21:34)
[2024-08-14] MEDS: DIOVAN 160 MG PO (08:23)
[2024-08-14] MEDS: HEPARIN 5000 UNITS SC ×3 (08:23→22:58)
[2024-08-14] MEDS: TOPROL XL 50 MG PO (08:24)
[2024-08-14] MEDS: HYDREA 500 MG PO ×2 (08:24→20:07)
[2024-08-14] MEDS: FOLVITE 1 MG PO (08:24)
[2024-08-14] MEDS: ZOVIRAX OINTMENT 5% 1 APPLIC TOPICAL ×5 (08:24→20:08)
[2024-08-14] MEDS: MIRALAX 17 GRAMS PO (08:24)
--- NOTE | 2024-08-14 10:40 | W.PN.ONC ---
Today's Communication / Plan
-
Continue hydroxyurea, folic acid, adequate hydration, pain management.
Impression
Impression
24 year old male a/w vaso-occlusive crisis
Acute on Chronic Anemia, s/p 5U PRBC during hospitalization, last 08/11 -Hgb stable 8.1g/dL
fever, leukocytosis -resolved
hypoxia - CTA no PE
mild left axillary lymphadenopathy 1.3 x 1.0cm
UDS opiates & marijuana
cardiomegaly, LVEF 58%
oral ulcer -aphthous ulcer vs HSV
Tachycardia
Plan
Plan
Off abx, ID following
continue folic acid 1mg daily at discharge
hydrea 500mg BID started 08/11 and should be continued at discharge
transfuse Hgb <7.5
Dvt ppx
continue supportive care with adequate hydration, supplemental O2, and pain management
Outpatient follow up with [facility] until he can get insurance. Follow up with [facility] when able, info added to discharge instructions.
Subjective/Objective
Subjective/Objective
Reports pain in hips/thighs that feels worse today. Required 1mg dilaudid x3 overnight. Now trying pain management with scheduled 5mg oxycodone q8h. Able to ambulate. Room air.
Sitting in bed, appears comfortable, no acute distress. Nonlabored respirations, room air. Tachycardia noted on monitor. Conversant, calm and appropriate affect.
Vital Signs:
Vital Signs
Temp Pulse Resp BP Pulse Ox
98.3 F 102 23 124/71 93
08/14/24 07:43 08/14/24 08:00 08/14/24 08:00 08/14/24 08:00 08/14/24 08:00
Lab Results:
Laboratory Data
WBC 9.1 10^3/uL (4.8-10.8) 08/14/24 04:48
Hgb 8.1 g/dL (13.0-18.0) L 08/14/24 04:48
Plt Count 241 10^3/uL (130-400) D 08/14/24 04:48
eGFR > 60.00 08/14/24 04:48
--- NOTE | 2024-08-14 11:08 | W.PN.ID1 ---
Date of Service
Date of Service: August 14, 2024
Today's Communication
Observe off antibiotics.
Assessment / Plan
Fever
Sickle cell crisis
Anemia
Leukocytosis; resolved
Thrombocytopenia
Elevated AST; improving
Oral ulcer; suspect aphthous ulcer rather than HSV
Hx sickle cell disease and beta thalassemia
Recommendations:
Blood cultures remain negative. Fevers resolved.
Continue to follow off of antibiotics.
Monitor for ongoing fevers.
Follow white count.
Continue with supportive measures.
Chief Complaint
-: Fever and Other (Sickle crisis)
Subjective / Review of Systems
Review of Systems: No Fever and No Chills
Vital Signs / Physical Exam
Vital Signs
Vital Signs
Temp Pulse Resp BP Pulse Ox
98.3 F 102 23 124/71 93
08/14/24 07:43 08/14/24 08:00 08/14/24 08:00 08/14/24 08:00 08/14/24 08:00
Physical Exam
Constitutional: No Acute Distress, Comfortable and Non-toxic
Pulmonary: Non Labored
Gastrointestinal: Non Distended
Neurological: Awake and Alert
Psychological: Calm
Objective Data
Lab Data
Lab Results
08/14/24 04:48
08/14/24 04:48
Estimated Creat Clear > 125 ml/min 08/14/24 04:48
Total Bilirubin 2.8 mg/dl (0.2-1.3) H 08/10/24 05:30
AST 67 U/L (17-59) H 08/10/24 05:30
ALT 16 U/L (0-50) 08/10/24 05:30
Alkaline Phosphatase 365 U/L (38-126) H 08/10/24 05:30
Most recent labs reviewed.
Micro Results:
08/07/24 12:27 Blood Culture - Final
Blood/Venous No Growth - Final Report
08/07/24 11:03 Blood Culture - Final
Blood/Venous No Growth - Final Report
08/07/24 00:09 MRSA Screen - Final
Nose No Methicillin Resistant Staphylococcus aureus isolated.
08/06/24 17:38 Influenza Types A & B ([facility]) - Final
Nasal Swab Negative for Influenza A & B, NAAT
Negative results must be combined with clinical observations
and patient history.
Nucleic Acid Amplification test (NAAT)performed on the
[employer] platform.
Imaging:
08/07/2024 CXR (portable): Lungs are clear. No pleural effusion or pneumothorax. Heart is mildly enlarged. Please see full dictation for additional detail. Film personally viewed.
08/06/2024 CT chest: Moderate cardiomegaly noted. Multiple bands of subsegmental atelectasis and scarring in both lungs. Mild left axillary lymphadenopathy. Severe bilateral gynecomastia. Please see full dictation for additional detail. Film
personally viewed.
--- NOTE | 2024-08-14 12:38 | W.PN.HOSP.TC ---
Today's Communication/Plan
-
Monitor vital signs see plan
PT/OT
Pain control, started oxycodone
hair or beauty salon manager to find a cost for hydroxyurea
Assessment / Plan
Assessment / Plan
Physical examination- -
General: not in distress, does not look in pain, looks comfortable.
HEENT: No deformities, Neck Supple. Pale and dry mucous membrane
lungs/Chest:CTA, no wheezes
Heart regular Rhythm, Normal S1/S2, Regular Rate (tachycardic)
Abdomen: Soft, Non Tender, Non Distended,.
Neurological: awake , Oriented x3. Answers questions appropriately and follows commands
Psych: calm, no agitation.
# Sickle cell pain crisis
Precipitated by stopping maintenance treatment with hydroxyurea and untreated INDIO/ hypoxia.
S/P high dose Dilaudid ATC and aggressive hydration
Stopped Standing dose of Dilaudid, changed to As needed only, add PRN Toradol.
PRN Tylenol PRN
DVT prophylaxis
d/w hematology, started on Hydroxyurea. S/p one unit of blood 4/2, one unit 4/4, 2 units 4/5. one unit 4/6. Goal of HGB > 7 . So far total of 5 units.
c/w Bowel regimen
Started oxycodone
In History,
Patient uses Motrin and heating pad. Had to tramadol prescription in the past.
Patient was able to report that he was taking hydroxyurea 1000 mg twice a day but due to lapse in insurance and no follow-up with his registered travel nurse.
# fever, reactive
SIRS due to a non-infectious source
Seems to happen again. Not uncommon to have fever while acute hemolysis from SC crisis.
WBC normalized.
There is clinical improvement over last 48 hours.
Negative blood cultures
CXR no active process.
No headaches.
Appreciate ID help, keep off ABx.
Asked ID to evaluate, help appreciated.
# Recurrent flare-up of herpes labialis
Will give Valtrex orally
Mild hypokalemia
Replete
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 Elevated liver enzyme. Elevated alkaline phosphatase. Elevated ferritin. Normal iron level
# hypoxia only due to combination of untreated severe INDIO/ Dilaudid
c/w O2 supplement;wean o2 as tolerated
Stopped ATC Dilaudid
Patient was counseled to use CPAP which he had since teenager, he verbalized understanding.
# Thrombocytosis, resolved
# Opioid induced encephalopathy
Resolved. AAOX3.
# High blood pressure
suspect due to untreated INDIO
Was elevated on admission
c/w BB and Diovan
# Urine drug screen positive for marijuana
# Sinus tachycardia/history of shortness of breath, chest pain.
Currently, no chest pain
Ordered echocardiogram and was unremarkable.
EKG consistent with sinus tachycardia
CT chest, no pulmonary embolism or infiltrate
Troponin on admission 0.014 then peaked at 0.055 then down to 0.033
Repeat chest x-ray showed no active disease. Continue oxygen supplementation
Monitored on telemetry
Started on Toprol & Diovan
Discussed with network field engineer. No need for OP follow up, can follow with PCP for HTN.
Anticipated Discharge: 24 - 48 hours
Subjective/Interval History
-
Date of Service: August 14, 2024
has some pain
Objective Data
-
Labs:
Laboratory Results
08/14/24
04:48
WBC 9.1
Hgb 8.1 L
Hct 24.9 L
Plt Count 241 D
Sodium 138
Potassium 4.3
Chloride 100
Carbon Dioxide 29
BUN 10
Creatinine 0.6 L
Glucose 119 H
Calcium 9.0
Vital Signs:
Vital Signs
Temp Pulse Resp BP Pulse Ox
97.3 F 114 18 143/78 94
08/14/24 11:30 08/14/24 10:50 08/14/24 10:50 08/14/24 10:50 08/14/24 12:03
I&O
08/13/24 08/14/24 08/15/24
06:59 06:59 06:59
Intake Total 480 / 480 720 / 720
Output Total 4300 / 4300 3900 / 3900 1200 / 1200
Balance -3820 / -3820 -3900 / -3900 -480 / -480
--- NOTE | 2024-08-14 13:03 | CM ---
Patient with Hx sickle cell disease with Dx vaso-occlusive crisis/sickle cell crisis, anemia. Room air. Receiving Roxicodone Q8h, IV Dilaudid prn.
PT 08/13; supervision for transfers/ambulation, stair training done, recommend HH.
OT 08/12; max assist LE self care, recommend AR.
CM Consult - cost of hydroxyurea 500mg PO BID.
Spoke with pharmacist, LANEY Rangel; he has the e-script and the cost is $23/month.
Met with patient and his grand-mother- they are ok with the cost.
Information relayed to Dr Redd.
Plan home when medically ready.
--- NOTE | 2024-08-14 18:09 | PTCARENOTE ---
see nursing assessment. pt used only one dose of prn dilaudid so far this shift.
[2024-08-14] MEDS: SENOKOT-S 2 TABLET PO (20:07)
--- NOTE | 2024-08-14 21:47 | PTCARENOTE ---
assumed care of patient. pt is AAOx3, VSS, able to make needs known. HR ST- 120s-130s. pt did verbalize to this RN feeling a little anxious about the next steps. positive environment maintained. on RA 94%, 2L NC applied HS. using urinal at bedside
without issues. some pain to bilateral legs and right hip, pt did say it is getting manageable but is still needing IV dilaudid PRN, trying to use less and less. care ongoing.
[2024-08-14] MEDS: NSS 250 IV (22:58)
[2024-08-15] VITALS (10 sets, daily range): BP systolic 114–140; BP diastolic 62–92; PULSE 121; O2SAT 97
--- NOTE | 2024-08-15 00:28 | PTCARENOTE ---
pt rang call brady saying his dizziness was getting worse, and he was feeling super anxious, pain was getting worse. HR 130s- BP 127/78. notified covering RN DELIVERY of the above, STAT EKG done, showing sinus tachy. PRN bolus given. after bolus, pt told
this RN he felt much better, thinking it was a panic attack from thinking about everything that has happened to him. pt was able to walk into bathroom x1 assist to have a BM without issues. HR did go up to 170s with ambulation, but went back down to
110s-120s when laying down. PRN dilaudid given per MAR for bilateral leg pain as patient said the scheduled oxycodone did not help at all. pt now back in bed. care ongoing.
[2024-08-15] MEDS: DILAUDID 1 MG IV ×4 (04:21→22:30)
[2024-08-15] MEDS: ROXICODONE 5 MG PO ×3 (05:58→21:16)
[2024-08-15 06:42] LABS: Hematocrit 26.4 % (39.0-52.0); Hemoglobin 8.5 g/dL (13.0-18.0); Mean Corp Hgb Conc. 32.2 g/dL (33.0-37.0); Mean Corpuscular Hgb 23.5 pg (27.0-31.0); Mean Corpuscular Volume 72.9 fL (80.0-94.0); Mean Platelet Volume 9.6 fL (7.4-10.4); Platelet Count 347 10^3/uL (130-400); Red Blood Cell Count 3.62 10^6/uL (4.70-6.10); Red Cell Dist. Width 33.1 % (11.5-14.5); White Blood Cell Count 9.2 10^3/uL (4.8-10.8)
[2024-08-15 06:57] LABS: Blood Urea Nitrogen 10 mg/dl (9-20); Calcium 9.3 mg/dl (8.4-10.2); Carbon Dioxide 29 mmol/L (22-30); Chloride 99 mmol/L (98-107); Estimated Creatinine Clearance > 125 ml/min; Glucose 127 mg/dl (70-99); Potassium 4.6 mmol/L (3.5-5.1); Sodium 136 mmol/L (135-145); eGFR > 60.00
[2024-08-15] MEDS: FOLVITE 1 MG PO (08:00)
[2024-08-15] MEDS: HYDREA 500 MG PO ×2 (08:00→21:16)
[2024-08-15] MEDS: HEPARIN 5000 UNITS SC ×3 (08:00→23:01)
[2024-08-15] MEDS: DIOVAN 160 MG PO (08:00)
[2024-08-15] MEDS: MIRALAX 17 GRAMS PO (08:00)
[2024-08-15] MEDS: TOPROL XL 50 MG PO (08:00)
[2024-08-15] MEDS: ZOVIRAX OINTMENT 5% 1 APPLIC TOPICAL ×5 (08:01→22:29)
[2024-08-15 08:58] LABS: Absolute Neutrophils -Man Diff 6.1 10^3/uL (1.4-6.5); Anisocytosis 1+; Band Neutrophils 4 % (0-3); Eosinophils 1 % (0-6); Hypochromasia 2+; Lymphocytes 29 % (20-51); Monocytes 2 % (2-9); Myelocytes 1 % (-); Normal RBC Morphology No; Nucleated Red Blood Cells 79 (-); Platelets Checked Yes; Polychromasia 2+; Segmented Neutrophils 63 % (42-75)
[2024-08-15 08:59] LABS: Basophilic Stippling 1+; Howell Jolly Bodies 1+; Target Cells 2+
[2024-08-15 09:00] LABS: Acanthocytes 1+; Ovalocytes 1+; Total Cells Counted 100
--- NOTE | 2024-08-15 11:03 | W.PN.ONC ---
Today's Communication / Plan
-
Continue hydroxyurea, folic acid, adequate hydration, pain management.
Heme/onc will sign off at this time.
Impression
Impression
24 year old male a/w vaso-occlusive crisis
Acute on Chronic Anemia, s/p 5U PRBC during hospitalization, last 08/11 -Hgb stable 8.5g/dL today
fever, leukocytosis -resolved
hypoxia - CTA no PE
mild left axillary lymphadenopathy 1.3 x 1.0cm
UDS opiates & marijuana
cardiomegaly, LVEF 58%
oral ulcer -aphthous ulcer vs HSV
Tachycardia
Plan
Plan
Off abx, ID following
continue folic acid 1mg daily at discharge
hydrea 500mg BID started 08/11 and should be continued at discharge
transfuse Hgb <7.5
Dvt ppx
continue supportive care with adequate hydration, supplemental O2, and pain management
Outpatient follow up with [facility] until he can get insurance. Follow up with insole tape stitcher [facility] when able, info added to discharge instructions.
Subjective/Objective
Subjective/Objective
Reports improvement in leg pain. No complaints. Denies lightheadedness, shortness of breath, palpitations, nausea/vomiting, diarrhea/constipation. Tolerating oral diet, maintaining adequate PO hydration.
Sitting in bed, appears comfortable, no acute distress.
Tachycardia noted. Nonlabored breathing, room air.
Calm, conversant, appropriate affect.
Vital Signs:
Vital Signs
Temp Pulse Resp BP Pulse Ox
98.1 F 121 17 129/71 93
08/15/24 07:25 08/15/24 08:03 08/15/24 08:03 08/15/24 08:03 08/15/24 09:40
Lab Results:
Laboratory Data
WBC 9.2 10^3/uL (4.8-10.8) 08/15/24 06:10
Hgb 8.5 g/dL (13.0-18.0) L 08/15/24 06:10
Plt Count 347 10^3/uL (130-400) D 08/15/24 06:10
eGFR > 60.00 08/15/24 06:10
--- NOTE | 2024-08-15 12:32 | W.PN.HOSP.TC ---
Today's Communication/Plan
-
Monitor vital signs see plan
Wean oxygen as tolerated
Pain control
Transfer to the floors today
If continues to improve then possible discharge tomorrow, discussed with patient
Assessment / Plan
Assessment / Plan
Physical examination- -
General: not in distress, does not look in pain, looks comfortable.
HEENT: No deformities, Neck Supple. Pale and dry mucous membrane
lungs/Chest:CTA, no wheezes
Heart regular Rhythm, Normal S1/S2, Regular Rate (tachycardic)
Abdomen: Soft, Non Tender, Non Distended,.
Neurological: awake , Oriented x3. Answers questions appropriately and follows commands
Psych: calm, no agitation.
# Sickle cell pain crisis
Precipitated by stopping maintenance treatment with hydroxyurea and untreated INDIO/ hypoxia.
S/P high dose Dilaudid ATC and aggressive hydration
Stopped Standing dose of Dilaudid, changed to As needed only, add PRN Toradol.
PRN Tylenol PRN
DVT prophylaxis
d/w hematology, started on Hydroxyurea. S/p one unit of blood 4/2, one unit 4/4, 2 units 4/5. one unit 4/6. Goal of HGB > 7 . So far total of 5 units.
c/w Bowel regimen
Started oxycodone
In History,
Patient uses Motrin and heating pad. Had to tramadol prescription in the past.
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
# fever, reactive
SIRS due to a non-infectious source
Seems to happen again. Not uncommon to have fever while acute hemolysis from SC crisis.
WBC normalized.
There is clinical improvement over last 48 hours.
Negative blood cultures
CXR no active process.
No headaches.
Appreciate ID help, keep off ABx.
Asked ID to evaluate, help appreciated.
# Recurrent flare-up of herpes labialis
Will give Valtrex orally
Mild hypokalemia
Replete
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 Elevated liver enzyme. Elevated alkaline phosphatase. Elevated ferritin. Normal iron level
# hypoxia only due to combination of untreated severe INDIO/ Dilaudid
c/w O2 supplement;wean o2 as tolerated
Stopped ATC Dilaudid
Patient was counseled to use CPAP which he had since teenager, he verbalized understanding.
# Thrombocytosis, resolved
# Opioid induced encephalopathy
Resolved. AAOX3.
# High blood pressure
suspect due to untreated INDIO
Was elevated on admission
c/w BB and Diovan
# Urine drug screen positive for marijuana
# Sinus tachycardia/history of shortness of breath, chest pain.
Currently, no chest pain
Ordered echocardiogram and was unremarkable.
EKG consistent with sinus tachycardia
CT chest, no pulmonary embolism or infiltrate
Troponin on admission 0.014 then peaked at 0.055 then down to 0.033
Repeat chest x-ray showed no active disease. Continue oxygen supplementation
Monitored on telemetry
Started on Toprol & Diovan
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 No need for OP follow up, can follow with PCP for HTN.
Anticipated Discharge: Within 24 hours
Subjective/Interval History
-
Date of Service: August 15, 2024
Denies nausea
Objective Data
-
Labs:
Laboratory Results
08/15/24
06:10
WBC 9.2
Hgb 8.5 L
Hct 26.4 L
Plt Count 347 D
Sodium 136
Potassium 4.6
Chloride 99
Carbon Dioxide 29
BUN 10
Creatinine 0.6 L
Glucose 127 H
Calcium 9.3
Vital Signs:
Vital Signs
Temp Pulse Resp BP Pulse Ox
98.1 F 121 17 129/71 93
08/15/24 07:25 08/15/24 08:03 08/15/24 08:03 08/15/24 08:03 08/15/24 09:40
I&O
08/14/24 08/15/24 08/16/24
06:59 06:59 06:59
Intake Total 720 / 720
Output Total 3900 / 3900 3700 / 3700 1000 / 1000
Balance -3900 / -3900 -2980 / -2980 -1000 / -1000
--- NOTE | 2024-08-15 14:54 | W.PN.ID1 ---
Date of Service
Date of Service: August 15, 2024
Today's Communication
Continue off antibiotics.
Assessment / Plan
Fever
Sickle cell crisis
Anemia
Leukocytosis; resolved
Thrombocytopenia
Elevated AST; improving
Oral ulcer; suspect aphthous ulcer rather than HSV
Hx sickle cell disease and beta thalassemia
Recommendations:
Blood cultures remain negative. Fevers resolved.
Continue off of antibiotics.
Monitor for ongoing fevers.
Follow white count.
Continue with supportive measures.
Chief Complaint
-: Fever and Other (Sickle crisis)
Subjective / Review of Systems
Review of Systems: No Fever and No Chills
Vital Signs / Physical Exam
Vital Signs
Vital Signs
Temp Pulse Resp BP Pulse Ox
98.1 F 112 18 126/67 95
08/15/24 07:25 08/15/24 12:00 08/15/24 12:00 08/15/24 12:00 08/15/24 12:00
Physical Exam
Constitutional: No Acute Distress, Comfortable and Non-toxic
Eyes: Sclera Anicteric
Pulmonary: Non Labored
Gastrointestinal: Non Distended
Neurological: Awake and Alert
Psychological: Calm
Objective Data
Lab Data
Lab Results
08/15/24 06:10
08/15/24 06:10
Estimated Creat Clear > 125 ml/min 08/15/24 06:10
Total Bilirubin 2.8 mg/dl (0.2-1.3) H 08/10/24 05:30
AST 67 U/L (17-59) H 08/10/24 05:30
ALT 16 U/L (0-50) 08/10/24 05:30
Alkaline Phosphatase 365 U/L (38-126) H 08/10/24 05:30
Most recent labs reviewed.
Micro Results:
08/07/24 12:27 Blood Culture - Final
Blood/Venous No Growth - Final Report
08/07/24 11:03 Blood Culture - Final
Blood/Venous No Growth - Final Report
08/07/24 00:09 MRSA Screen - Final
Nose No Methicillin Resistant Staphylococcus aureus isolated.
08/06/24 17:38 Influenza Types A & B ([facility]) - Final
Nasal Swab Negative for Influenza A & B, NAAT
Negative results must be combined with clinical observations
and patient history.
Nucleic Acid Amplification test (NAAT)performed on the
uberall platform.
Imaging:
08/07/2024 CXR (portable): Lungs are clear. No pleural effusion or pneumothorax. Heart is mildly enlarged. Please see full dictation for additional detail. Film personally viewed.
08/06/2024 CT chest: Moderate cardiomegaly noted. Multiple bands of subsegmental atelectasis and scarring in both lungs. Mild left axillary lymphadenopathy. Severe bilateral gynecomastia. Please see full dictation for additional detail. Film
personally viewed.
[2024-08-15] MEDS: SENOKOT-S PO (21:18)
--- NOTE | 2024-08-16 02:07 | PTCARENOTE ---
Pt AAOx3. Pt up and walking to bathroom as needed. Pt having pain at times, see MAR for medication admin. Call brady within reach. Assessment care and vitals as charted.
[2024-08-16] MEDS: DILAUDID 1 MG IV ×2 (02:39→11:33)
[2024-08-16 05:03] LABS: % Basophils 0.4 % (0-2); % Eosinophils 1.3 % (0-6); % Immature Granulocytes 1.6 % (0-0.5); % Lymphocytes 29.6 % (20.5-51.1); % Monocytes 2.9 % (1.7-9.3); % Neutrophils 64.2 % (42.2-75.2); Absolute Eosinophils 0.1 10^3/uL (0-0.7); Absolute Immature Granulocytes 0.2 10^3/uL (0-0.05); Absolute Lymphocytes 2.7 10^3/uL (1.2-3.4); Absolute Monocytes 0.3 10^3/uL (0.1-0.6); Absolute Neutrophils 5.9 10^3/uL (1.4-6.5); Hematocrit 23.7 % (39.0-52.0); Mean Corp Hgb Conc. 33.8 g/dL (33.0-37.0); Mean Corpuscular Hgb 24.5 pg (27.0-31.0); Mean Corpuscular Volume 72.7 fL (80.0-94.0); Mean Platelet Volume 9.7 fL (7.4-10.4); Nucleated Red Blood Cells % 43.6 % (-); Platelet Count 435 10^3/uL (130-400); Red Blood Cell Count 3.26 10^6/uL (4.70-6.10); White Blood Cell Count 9.2 10^3/uL (4.8-10.8)
[2024-08-16 05:24] LABS: Blood Urea Nitrogen 13 mg/dl (9-20); Carbon Dioxide 32 mmol/L (22-30); Chloride 100 mmol/L (98-107); Estimated Creatinine Clearance > 125 ml/min; Glucose 136 mg/dl (70-99); Potassium 4.3 mmol/L (3.5-5.1); Sodium 136 mmol/L (135-145); eGFR > 60.00
[2024-08-16] MEDS: ROXICODONE 5 MG PO ×2 (05:52→13:54)
[2024-08-16 07:47] VITALS: BP 128/61
[2024-08-16] MEDS: ZOVIRAX OINTMENT 5% 1 APPLIC TOPICAL ×2 (08:08→11:30)
[2024-08-16] MEDS: MIRALAX PO (08:08)
[2024-08-16] MEDS: FOLVITE 1 MG PO (08:08)
[2024-08-16] MEDS: TOPROL XL 50 MG PO (08:08)
[2024-08-16] MEDS: DIOVAN 160 MG PO (08:08)
[2024-08-16] MEDS: HEPARIN 5000 UNITS SC (08:08)
[2024-08-16] MEDS: HYDREA 500 MG PO (08:08)
--- NOTE | 2024-08-16 12:50 | W.PN.HOSP.TC ---
Addendum entered and electronically signed by Bruce Redd MD 08/16/24 13:22:
time of discharge 38 minutes
Original Note:
Today's Communication/Plan
-
monitor vitals
see plan
cw hydroxyurea
Pain control
Encourage patient to get insurance as soon as possible, he will need further follow-up with physicians outpatient
Assessment / Plan
Assessment / Plan
Physical examination- -
General: not in distress, does not look in pain, looks comfortable.
HEENT: No deformities, Neck Supple. Pale and dry mucous membrane
lungs/Chest:CTA, no wheezes
Heart regular Rhythm, Normal S1/S2, Regular Rate (tachycardic)
Abdomen: Soft, Non Tender, Non Distended,.
Neurological: awake , Oriented x3. Answers questions appropriately and follows commands
Psych: calm, no agitation.
# Sickle cell pain crisis
Precipitated by stopping maintenance treatment with hydroxyurea and untreated INDIO/ hypoxia.
S/P high dose Dilaudid ATC and aggressive hydration
Stopped Standing dose of Dilaudid, changed to As needed only, also on oxycodone
PRN Tylenol PRN
DVT prophylaxis
d/w hematology, started on Hydroxyurea. S/p one unit of blood 4/2, one unit 4/4, 2 units 4/5. one unit 4/6. Goal of HGB > 7 . So far total of 5 units.
c/w Bowel regimen
Started oxycodone
In History,
Patient uses Motrin and heating pad. Had to tramadol prescription in the past.
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
# fever, reactive
SIRS due to a non-infectious source
Seems to happen again. Not uncommon to have fever while acute hemolysis from SC crisis.
WBC normalized.
There is clinical improvement over last 48 hours.
Negative blood cultures
CXR no active process.
No headaches.
Appreciate ID help, keep off ABx.
Asked ID to evaluate, help appreciated.
# Recurrent flare-up of herpes labialis
Will give Valtrex orally
Mild hypokalemia
Replete
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 Elevated liver enzyme. Elevated alkaline phosphatase. Elevated ferritin. Normal iron level
# hypoxia only due to combination of untreated severe INDIO/ Dilaudid
c/w O2 supplement;wean o2 as tolerated; now on room air. Does not require oxygen
Stopped ATC Dilaudid
Patient was counseled to use CPAP which he had since teenager, he verbalized understanding.
# Thrombocytosis, resolved
# Opioid induced encephalopathy
Resolved. AAOX3.
# High blood pressure
suspect due to untreated INDIO
Was elevated on admission
c/w BB and Diovan
# Urine drug screen positive for marijuana
# Sinus tachycardia/history of shortness of breath, chest pain.
Currently, no chest pain
Ordered echocardiogram and was unremarkable.
EKG consistent with sinus tachycardia
CT chest, no pulmonary embolism or infiltrate
Troponin on admission 0.014 then peaked at 0.055 then down to 0.033
Repeat chest x-ray showed no active disease. Continue oxygen supplementation
Monitored on telemetry
Started on Toprol & Diovan
Discussed with house wrecker. No need for OP follow up, can follow with PCP for HTN.
Discussed with patient that he will need close follow-up outpatient. He does not have insurance currently however in process. Given his sickle cell disease we will give him some opioids. He is aware. He will need to find a physician soon for
more prescription.
Anticipated Discharge: Today
Subjective/Interval History
-
Date of Service: August 16, 2024
Feeling better
Objective Data
-
Labs:
Laboratory Results
08/16/24
04:50
WBC 9.2
Hgb 8.0 L
Hct 23.7 L
Plt Count 435 H D
Sodium 136
Potassium 4.3
Chloride 100
Carbon Dioxide 32 H
BUN 13
Creatinine 0.6 L
Glucose 136 H
Calcium 9.0
Vital Signs:
Vital Signs
Temp Pulse Resp BP Pulse Ox
98.0 F 94 16 128/61 95
08/16/24 07:47 08/16/24 08:08 08/16/24 07:47 08/16/24 08:08 08/16/24 07:47
I&O
08/15/24 08/16/24 08/17/24
06:59 06:59 06:59
Intake Total 720 / 720 920 / 920
Output Total 3700 / 3700 3200 / 3200
Balance -2980 / -2980 -2280 / -2280
--- NOTE | 2024-08-16 13:21 | W.DCSUMMARY ---
Discharge Summary
Discharge Data
Date of Admission: 08/06/24
Date of Discharge: 08/16/24
-
Pending Results: No
Hospital Course
24-year-old male with past medical history of sickle cell disease, thalassemia, opioid use, high blood pressure came to the hospital with sickle cell pain crisis. Patient was seen by hematology throughout hospitalization. It was determined that
patient's symptoms are precipitated by stopping maintenance treatment with hydroxyurea and also has untreated sleep apnea. Patient was initially put on IV pain medication which was later transitioned to p.o. meds on discharge. He also developed
encephalopathy secondary to pain medications which continue to improve over time. While he was in the hospital he did had a fever and was seen by infectious disease who recommended to monitor him off antibiotics since this could likely be from
acute hemolysis from sickle cell crisis. Patient required multiple times blood transfusion on this hospitalization. His hemoglobin was stable for days prior to discharge. For his sinus tachycardia and high blood pressure he was seen by
cardiology. Echocardiogram did not show any acute abnormality. Cardiology recommended patient to be started on metoprolol and Diovan. Will his hospitalization was also complicated since he did not had his insurance. manager assisted living discussed
[facility]'s free clinic and patient was given information on discharge. Patient was also under process of getting insurance. It was discussed with the patient that he will need to follow-up with all his outpatient physicians soon and ensure he
takes his medications. Once his symptoms continue to improve he was then discharged home with instructions to follow-up with all the physicians outpatient.
Discharge Plan
-
Patient Disposition: Home (Routine Discharge)
Discharge Diagnosis/Procedures: Sickle cell pain crisis
Intrinsic hemolytic anemia due to sickle cell disease
Hypoxic respiratory insufficiency
Diet: As tolerated
Activity: As tolerated
Driving Restrictions: As prior to admission
Bathing Restrictions: None
Referrals:
Maya Iniguez MD [Active] - (Call the hematology office to schedule appointment)
NONE,* [Family Provider] - in less than 1 week (Call --[facility]-- ([phone]) as they take uninsured patients and low-income patients)
Prescriptions:
New
hydroxyurea 500 mg Capsule
500 mg PO BID Qty: 60 0RF
polyethylene glycol 3350 17 gram Powder In Packet
17 g PO DAILY Qty: 30 0RF
valsartan 160 mg Tablet
160 mg PO DAILY Qty: 30 0RF
metoprolol succinate 50 mg Tablet Extended Release 24 Hr
50 mg PO DAILY Qty: 30 0RF
sennosides-docusate sodium 8.6-50 mg Tablet
2 tab PO HS Qty: 0 0RF
acyclovir 5 % Ointment
1 applic topical 5/D Qty: 10 0RF
Continued
ibuprofen 800 mg tablet
800 mg PO Q8HPRN PRN (Reason: mild pain)
folic acid 1 mg tablet
1 mg PO DAILY Qty: 30 0RF
oxycodone 5 mg tablet
5 mg PO TID PRN (Reason: Pain) Qty: 30 0RF
Discontinued
tramadol 50 mg tablet
50 mg PO Q6HPRN PRN (Reason: moderate pain)
Discharge Orders:
Discharge Patient (As Directed); Ordered 08/16/24
Ordered By: Bruce Redd
Discharge Date and Time
Discharge Date/Time: 08/16/24 14:07
Print Language: YAKUT
[2024-08-16] MEDS: AFLURIA (36 mos+) 2024-2025 FORMULA 0.5 ML IM (13:54)
[2024-08-16 14:10] VITALS: BP 130/58
--- NOTE | 2024-08-16 14:12 | PTCARENOTE ---
Rec'd pt this AM. Pt stable for dc. to home. reviewed with pt. ambulated to car. mother here to transport pt home.
== END 2024-08-16 14:07 | disposition home or self-care (01) | DRG 812 ==
LOC: IMU 16:20
PROVIDERS: Clinical Nurse Specialist Family Health; Nurse Practitioner Gerontology; ADMITTING PHYSICIAN Internal Medicine; ATTENDING PHYSICIAN Internal Medicine; CONSULT PHYSICIAN Internal Medicine Cardiovascular Disease; CONSULT PHYSICIAN Internal Medicine Infectious Disease; EMERGENCY PHYSICIAN Emergency Medicine; OTHER PHYSICIAN Internal Medicine
PROC: 30233N1 Transfusion of Nonautologous Red Blood Cells into Peripheral Vein, Percutaneous Approach (ICD-10-PCS; 2024-08-07)
DX: D57.09 Hb-SS disease with crisis with other specified complication (principal); Z68.41 Body mass index [BMI] 40.0-44.9, adult; G93.49 Other encephalopathy; R65.10 Systemic inflammatory response syndrome (SIRS) of non-infectious origin without acute organ dysfunction; I5A Non-ischemic myocardial injury (non-traumatic); G47.33 Obstructive sleep apnea (adult) (pediatric); R09.02 Hypoxemia; E66.9 Obesity, unspecified; D72.829 Elevated white blood cell count, unspecified; T39.95XA Adverse effect of unspecified nonopioid analgesic, antipyretic and antirheumatic, initial encounter; E87.6 Hypokalemia; B00.1 Herpesviral vesicular dermatitis; Z91.199 Patient's noncompliance with other medical treatment and regimen due to unspecified reason; Z59.71 Insufficient health insurance coverage
CPT/HCPCS: 71045; 71275; 80048; 80053; 80306; 80307; 82728; 83036; 83540; 83550; 84484; 85025; 85027; 85045; 86850; 86900; 86901; 86902; 86920; 87040; 87070; 87502; 87811; 90686; 93005; 93306; 96361; 96374; 96375; 97116; 97163; 97167; 97530; 97535; 99285; G0008; P9016; Q9967